=== PATIENT | female | born 1995 | race Two or more races ===

== ENCOUNTER 2022-10-07 13:51 | Emergency (ER) | payer OTHER, SELFPAY ==
--- NOTE | ~2022-10-07 | XR_ITS ---
EXAMINATION: XR CHEST CLINICAL INFORMATION: Chest pain for 7 months, worsening in the last 2 days. COMPARISON: None TECHNIQUE: 2 views of the chest were obtained. FINDINGS: No significant abnormality is noted involving the heart, lungs, mediastinum, bony thorax or soft tissues. XR/XR chest 2V IMPRESSION: Unremarkable examination.
--- NOTE | ~2022-10-07 | CT_ITS ---
EXAMINATION: CT ANGIOGRAM OF THE CHEST WITH AND WITHOUT CONTRAST (CT PULMONARY ANGIOGRAM FOR PE) CLINICAL INFORMATION: Reason for Exam cp COMPARISON: None TECHNIQUE: Prior to contrast administration, noncontrast localization images were obtained. Subsequently, multidetector volumetric imaging was performed from the thoracic inlet to below the diaphragms following the administration of 65 mL Omnipaque 350 intravenous contrast. No contrast reaction reported Sagittal, coronal, and MIP oblique sagittal reformatted images were obtained on the CT workstation, uploaded to PACS, and reviewed. This CT examination was performed using dose optimization techniques as appropriate, variously including the following: *Automated exposure control *Adjustment of mA and/or kV according to patient size (this includes techniques or standardized protocols for targeted exams where dose is matched to indication/reason for exam; i.e. extremities or head) *Use of iterative reconstruction technique Total exam dose-length product 452 mGy-cm FINDINGS: QUALITY OF STUDY/CONTRAST BOLUS: Suboptimal. In addition, there is marked motion artifact along with artifact and neuritis caused by the patient's large size. PULMONARY ARTERIES: No emboli are seen in the main pulmonary artery or the left and right main pulmonary arteries. More distal assessment is not possible. THORACIC AORTA: No aneurysm or dissection. LUNG: No focal consolidation, nodules or masses. PLEURA: No pleural effusion or pneumothorax. MEDIASTINUM: Normal heart size. No pericardial effusion. No hilar or mediastinal lymphadenopathy. No evidence of septal bowing or right heart strain. CORONARY ARTERY CALCIFICATION: None visualized on this study. CHEST WALL/AXILLA: No axillary or internal mammary lymphadenopathy. OSSEOUS STRUCTURES: No acute or suspicious osseous abnormality. UPPER ABDOMEN: A small hiatal hernia is present. No reflux of contrast into the hepatic veins to suggest elevated right heart pressures. CT/CT angio chest PE protocol IMPRESSION: 1. Limited study but no large central pulmonary emboli are seen. 2. VTE: Negative, but limited. This critical result was discussed with Dr. Menchaca immediately after the exam and it was ascertained that the content and urgency of the report was understood at the time of direct communication.
[2022-10-07 14:01] VITALS: BP 146/86; PULSE 99; RESP 18; TEMP 35.7; O2SAT 93; BMI 38.7
--- NOTE | 2022-10-07 14:16 | ED.CHESTPAIN ---
HPI - Chest Pain General Chief Complaint: Chest Pain Stated Complaint: chest pain, sob Time Seen by Provider: 10/07/22 16:13 Related Data Allergies Allergy/AdvReac Type Severity Reaction Status Date / Time No Known Allergies Allergy Verified 10/07/22 14:09 [facility] Social History Social History Advance Directives: No Advance Directives Information Provided: Yes Physical Exam Vital Signs: Vital Signs: Last Vital Signs Temp 97.8 F 10/07/22 20:24 Pulse 75 10/07/22 20:24 Resp 18 10/07/22 20:24 BP 134/84 10/07/22 20:24 Pulse Ox 100 10/07/22 20:24 O2 Del Method Room Air 10/07/22 20:24 BMI result Body Mass Index 38.7 Course Course Course Narrative: RME-14:20pm - 27yoF who speaks Creole Iraqi use interpreter deaf with a PMHx of HTN not on medications x months recently moved from [place] who is presenting to the ED with her son who is 7 months at bedside with c/o of Chest pain with associated SOB has been intermittent since she was . Reports she has not been on her hypertensive medication for months. The chest pain has been worse over the past 2-3 days. Denies being on any control, cough, sputum production, leg swelling, abdominal pain, urinary symptoms or any other symptoms complaints or concerns at this time. Plan: Labs, EKG, CXR. Pt sent to to be seen in the ED. Medications Administered Discontinued Medications Generic Name Dose Route Start Last Admin Trade Name Freq PRN Reason Stop Dose Admin Iohexol 100 ml 10/07/22 18:35 10/07/22 18:35 Iohexol 350 Mg/Ml 100 Ml Infus..Btl IV 10/07/22 18:36 65 ml ONCE ONE Administration Medical Decision Making Lab Data 10/07/22 14:31 10/07/22 14:31 Labs: Lab Results 10/07/22 10/07/22 10/07/22 Range/Units 14:31 14:31 14:31 WBC 10.6 (4.8-10.8) X10*3/uL RBC 4.49 (4.20-5.50) X10*6/uL Hgb 11.3 L (12.0-16.0) g/dl Hct 36.1 L (37.0-47.0) % MCV 80.4 (80.0-98.0) fL MCH 25.2 L (27.0-33.0) pg MCHC 31.3 (31.0-35.0) g/dl RDW 16.4 H (11.0-16.0) % Plt Count 372 (160-400) X10*3/uL MPV 10.4 (9.4-12.3) fL Immature Gran % (Auto) 0.8 H (0.0-0.4) % Neut % (Auto) 65.1 (45-73) % Lymph % (Auto) 27.1 (20-40) % Sumner % (Auto) 5.6 (2-11) % Eos % (Auto) 0.8 (0-4) % Baso % (Auto) 0.6 (0-2) % Lymph # (Auto) 2.9 (1.2-4.9) X10*3/uL Sumner # (Auto) 0.6 (0.1-1.2) X10*3/uL Eos # (Auto) 0.1 (0.0-0.4) X10*3/uL Baso # (Auto) 0.1 (0.0-0.2) X10*3/uL Abs Immat Gran (auto) 0.08 H (0.00-0.03) X10*3/uL Absolute Neuts (auto) 6.9 (2.0-8.3) x10*3/uL Absolute Nucleated RBC 0.000 (0.0-0.012) X10*3/uL Nucleated RBC % (auto) 0.0 (0.0-0.2) /100WBC PT 12.1 (10.0-13.1) SEC INR 1.1 (0.9-1.1) D-Dimer High Sensitivty 314 NG/ML Sodium 143 (135-145) mmol/L Potassium 4.2 (3.3-5.1) mmol/L Chloride 108 (96-108) mmol/L Carbon Dioxide 23 (22-29) mmol/L Anion Gap 16 (12-20) BUN 10 (9-16) mg/dL Creatinine 0.85 (0.5-1.4) mg/dL Estim Creat Clear Calc 140.1 Estimated GFR > 60 Random Glucose 119 H (60-115) mg/dL Calcium 9.2 (8.4-10.2) mg/dL Magnesium 1.9 (1.6-2.6) mg/dL Total Bilirubin 0.5 (0.0-1.0) mg/dL AST 40 H (5-31) U/L ALT 64 H (0-31) U/L Alkaline Phosphatase 111 (39-117) U/L Troponin I High Sens (<3.5-17.0) ng/L B-Natriuretic Peptide (<100) pg/mL Total Protein 7.4 (6.5-8.0) g/dL Albumin 4.0 (3.5-5.0) g/dL Beta HCG, Quant < 2 mIU/mL Influenza Type A (PCR) (Negative) Influenza Type B (PCR) (Negative) RSV RNA Qual (PCR) (Negative) SARS-CoV-2 RNA (RT-PCR) (Negative) 10/07/22 10/07/22 10/07/22 Range/Units 14:31 14:31 14:31 WBC (4.8-10.8) X10*3/uL RBC (4.20-5.50) X10*6/uL Hgb (12.0-16.0) g/dl Hct (37.0-47.0) % MCV (80.0-98.0) fL MCH (27.0-33.0) pg MCHC (31.0-35.0) g/dl RDW (11.0-16.0) % Plt Count (160-400) X10*3/uL MPV (9.4-12.3) fL Immature Gran % (Auto) (0.0-0.4) % Neut % (Auto) (45-73) % Lymph % (Auto) (20-40) % Sumner % (Auto) (2-11) % Eos % (Auto) (0-4) % Baso % (Auto) (0-2) % Lymph # (Auto) (1.2-4.9) X10*3/uL Sumner # (Auto) (0.1-1.2) X10*3/uL Eos # (Auto) (0.0-0.4) X10*3/uL Baso # (Auto) (0.0-0.2) X10*3/uL Abs Immat Gran (auto) (0.00-0.03) X10*3/uL Absolute Neuts (auto) (2.0-8.3) x10*3/uL Absolute Nucleated RBC (0.0-0.012) X10*3/uL Nucleated RBC % (auto) (0.0-0.2) /100WBC PT (10.0-13.1) SEC INR (0.9-1.1) D-Dimer High Sensitivty NG/ML Sodium (135-145) mmol/L Potassium (3.3-5.1) mmol/L Chloride (96-108) mmol/L Carbon Dioxide (22-29) mmol/L Anion Gap (12-20) BUN (9-16) mg/dL Creatinine (0.5-1.4) mg/dL Estim Creat Clear Calc Estimated GFR Random Glucose (60-115) mg/dL Calcium (8.4-10.2) mg/dL Magnesium (1.6-2.6) mg/dL Total Bilirubin (0.0-1.0) mg/dL AST (5-31) U/L ALT (0-31) U/L Alkaline Phosphatase (39-117) U/L Troponin I High Sens < 3.5 (<3.5-17.0) ng/L B-Natriuretic Peptide < 10 (<100) pg/mL Total Protein (6.5-8.0) g/dL Albumin (3.5-5.0) g/dL Beta HCG, Quant mIU/mL Influenza Type A (PCR) NEGATIVE (Negative) Influenza Type B (PCR) NEGATIVE (Negative) RSV RNA Qual (PCR) NEGATIVE (Negative) SARS-CoV-2 RNA (RT-PCR) NEGATIVE (Negative) Discharge Plan Discharge Clinical Impression: Chest pain Patient Disposition: Home, Self-Care Instructions: Chest Pain (DC) Referrals: [facility] [Provider Group] Interventions: ED Discharge Assessment Last Done: 10/07/22 22:30 Discharge Date/Time: 10/07/22 22:31 Print Language: North Korean
--- NOTE | 2022-10-07 14:17 | ECG_ITS ---
Test Reason : cp Blood Pressure : / mmHG Vent. Rate : 088 BPM Atrial Rate : 088 BPM P-R Int : 144 ms QRS Dur : 080 ms QT Int : 364 ms P-R-T Axes : 037 007 006 degrees QTc Int : 440 ms Normal sinus rhythm Normal ECG No previous ECGs available Referred By: Brit Gao Electronically Signed By:uJan Alcala
[2022-10-07 14:36] LABS: MANUAL DIFF FLAG NO
[2022-10-07 14:40] LABS: Basophils Absolute Auto 0.1 X10*3/uL (0.0-0.2); Basophils Percent Auto 0.6 % (0-2); Eosinophils Absolute Auto 0.1 X10*3/uL (0.0-0.4); Eosinophils Percent Auto 0.8 % (0-4); Hematocrit 36.1 % (37.0-47.0); Hemoglobin 11.3 g/dl (12.0-16.0); Imm Gran Abs Auto 0.08 X10*3/uL (0.00-0.03); Imm Gran Pct Auto 0.8 % (0.0-0.4); Lymphocytes Absolute Auto 2.9 X10*3/uL (1.2-4.9); Lymphocytes Percent Auto 27.1 % (20-40); Mean Corpuscular HGB Conc 31.3 g/dl (31.0-35.0); Mean Corpuscular Hemoglobin 25.2 pg (27.0-33.0); Mean Corpuscular Volume 80.4 fL (80.0-98.0); Mean Platelet Volume 10.4 fL (9.4-12.3); Monocytes Absolute Auto 0.6 X10*3/uL (0.1-1.2); Monocytes Percent Auto 5.6 % (2-11); Neutrophils Absolute Auto 6.9 x10*3/uL (2.0-8.3); Neutrophils Percent Auto 65.1 % (45-73); Platelet Count 372 X10*3/uL (160-400); Red Blood Count 4.49 X10*6/uL (4.20-5.50); Red Cell Distribution Width 16.4 % (11.0-16.0); White Blood Count 10.6 X10*3/uL (4.8-10.8)
[2022-10-07 14:49] LABS: INTERNATIONAL NORM RATIO 1.1 (0.9-1.1); Prothrombin Time 12.1 SEC (10.0-13.1)
[2022-10-07 15:05] LABS: Alanine Aminotransferase 64 U/L (0-31); Alkaline Phosphatase 111 U/L (39-117); Anion Gap 16 (12-20); Aspartate Amino Transferase 40 U/L (5-31); B Type Natriuretic Peptide < 10 pg/mL (<100); Bilirubin Total 0.5 mg/dL (0.0-1.0); Blood Urea Nitrogen 10 mg/dL (9-16); Calcium 9.2 mg/dL (8.4-10.2); Carbon Dioxide 23 mmol/L (22-29); Chloride 108 mmol/L (96-108); Creatinine Clr Calc Pharmacy 140.1; Estimated Glomerular Filt Rate > 60; Glucose Random 119 mg/dL (60-115); Magnesium 1.9 mg/dL (1.6-2.6); Potassium 4.2 mmol/L (3.3-5.1); Sodium 143 mmol/L (135-145); Total Protein 7.4 g/dL (6.5-8.0)
[2022-10-07 15:07] LABS: HCG Quantitative < 2 mIU/mL; Troponin-I High Sensitivity < 3.5 ng/L (<3.5-17.0)
[2022-10-07 15:17] LABS: Influenza A PCR NEGATIVE (Negative); Influenza B PCR NEGATIVE (Negative); Resp Syncy Virus RNA Qual PCR NEGATIVE (Negative); SARS COV2 PCR INHOUSE NEGATIVE (Negative)
[2022-10-07 16:43] VITALS: BP 143/83; PULSE 91; RESP 18; TEMP 36.8; O2SAT 97
--- NOTE | 2022-10-07 17:24 | ED.CHESTPAIN ---
HPI - Chest Pain General Chief Complaint: Chest Pain Stated Complaint: chest pain, sob Time Seen by Provider: 10/07/22 16:13 History of Present Illness HPI narrative: Patient is a 27-year-old female presents today with having chest pain. Patient claims her chest pain was diagnosed when she was . She is unsure where she gives . It is [place] the [place] patient complaining of chest pain that is mid chest. It is sharp. Question shortness of breath. Pain is been ongoing. There is no leg swelling. There is no history of being on control pills. Patient has no history of blood clots. No history of diabetes, hypertension, high cholesterol, smoking, mi. no history of sudden in the family. Denies any recent travel. No history of pneumothorax in the past no history of coughing congestion upper respiratory symptoms. The patient does not have the bottle use of a medication she was put on. Claims she got the pill from the hospital but she cannot recall the name of the hospital or the states she was in. Related Data Allergies Allergy/AdvReac Type Severity Reaction Status Date / Time No Known Allergies Allergy Verified 10/07/22 14:09 Review of Systems Review of Systems: No fever no chills no cough no congestion positive chest pain mid chest Yes all other systems are reviewed and are negative PMFSH Social History Social History Advance Directives: No Advance Directives Information Provided: Yes Physical Exam Vital Signs: Vital Signs: Last Vital Signs Temp 97.8 F 10/07/22 20:24 Pulse 75 10/07/22 20:24 Resp 18 10/07/22 20:24 BP 134/84 10/07/22 20:24 Pulse Ox 100 10/07/22 20:24 O2 Del Method 10/07/22 20:24 BMI result Body Mass Index 38.7 Appearance: Alert. Oriented X3. No acute distress. Eyes: Pupils equal, round and reactive to light. ENT: Pharynx normal. Neck: Normal inspection. Neck supple. No lymph nodes noted. No crepitus CVS: Normal heart rate and rhythm. Pulses normal. Normal S1 and S2 Respiratory: No respiratory distress. Breath sounds normal. No Wheezing. No rales Abdomen: Soft and nontender. No rigidity. No distention. good BS x4 Skin: Skin warm and dry. Normal skin color. Normal skin turgor. Extremities: No lower extremity edema. Neurovascular intact to all extremities. No Lacerations. No Rash Neuro: Oriented X 3. No motor deficit. No sensory deficit. Moving all extermities. No slurred speech Medications Administered Discontinued Medications Generic Name Dose Route Start Last Admin Trade Name Sharon PRN Reason Stop Dose Admin Iohexol 100 ml 10/07/22 18:35 10/07/22 18:35 Iohexol 350 Mg/Ml 100 Ml Infus..Btl IV 10/07/22 18:36 65 ml ONCE ONE Administration Medical Decision Making Medical Decision Making [facility] Narrative: Patient's chest pain atypical. Chest x-ray showed no evidence of pneumonia pneumothorax. Patient's EKG is normal. No evidence for UT. Troponin is negative. She is 27 years old. The history is atypical for ACS. Heart score is less than 3. Patient's has no leg swelling. No recent travel. Not on control. No history of PE/DVT. A D-dimer was ordered if it is negative given patient's low risk unlikely to have a pulmonary emboli. Will discharge patient home close follow-up on an outpatient basis Patient's D-dimer minimally elevated at approximately 300. A CTA of the chest was done. There was no large PE noted. It was somewhat limited because of patient's and unable to cooperate. Will have patient follow-up at [facility]. Patient is well-appearing. Workup was negative otherwise. Differential Diagnosis Differential Diagnoses: The differential diagnosis associated with the presentation includes ACS, pneumonia, pneumothorax, pulmonary emboli Lab Data [facility] Lab Attestation statement: I reviewed the patient's lab results. 10/07/22 14:31 10/07/22 14:31 Labs: Lab Results 10/07/22 10/07/22 10/07/22 Range/Units 14:31 14:31 14:31 WBC 10.6 (4.8-10.8) X10*3/uL RBC 4.49 (4.20-5.50) X10*6/uL Hgb 11.3 L (12.0-16.0) g/dl Hct 36.1 L (37.0-47.0) % MCV 80.4 (80.0-98.0) fL MCH 25.2 L (27.0-33.0) pg MCHC 31.3 (31.0-35.0) g/dl RDW 16.4 H (11.0-16.0) % Plt Count 372 (160-400) X10*3/uL MPV 10.4 (9.4-12.3) fL Immature Gran % (Auto) 0.8 H (0.0-0.4) % Neut % (Auto) 65.1 (45-73) % Lymph % (Auto) 27.1 (20-40) % Pleas[place] % (Auto) 5.6 (2-11) % Eos % (Auto) 0.8 (0-4) % Baso % (Auto) 0.6 (0-2) % Lymph # (Auto) 2.9 (1.2-4.9) X10*3/uL [place] # (Auto) 0.6 (0.1-1.2) X10*3/uL Eos # (Auto) 0.1 (0.0-0.4) X10*3/uL Baso # (Auto) 0.1 (0.0-0.2) X10*3/uL Abs Immat Gran (auto) 0.08 H (0.00-0.03) X10*3/uL Absolute Neuts (auto) 6.9 (2.0-8.3) x10*3/uL Absolute Nucleated RBC 0.000 (0.0-0.012) X10*3/uL Nucleated RBC % (auto) 0.0 (0.0-0.2) /100WBC PT 12.1 (10.0-13.1) SEC INR 1.1 (0.9-1.1) D-Dimer High Sensitivty 314 NG/ML Sodium 143 (135-145) mmol/L Potassium 4.2 (3.3-5.1) mmol/L Chloride 108 (96-108) mmol/L Carbon Dioxide 23 (22-29) mmol/L Anion Gap 16 (12-20) BUN 10 (9-16) mg/dL Creatinine 0.85 (0.5-1.4) mg/dL Estim Creat Clear Calc 140.1 Estimated GFR > 60 Random Glucose 119 H (60-115) mg/dL Calcium 9.2 (8.4-10.2) mg/dL Magnesium 1.9 (1.6-2.6) mg/dL Total Bilirubin 0.5 (0.0-1.0) mg/dL AST 40 H (5-31) U/L ALT 64 H (0-31) U/L Alkaline Phosphatase 111 (39-117) U/L Troponin I High Sens (<3.5-17.0) ng/L B-Natriuretic Peptide (<100) pg/mL Total Protein 7.4 (6.5-8.0) g/dL Albumin 4.0 (3.5-5.0) g/dL Beta HCG, Quant < 2 mIU/mL Influenza Type A (PCR) (Negative) Influenza Type B (PCR) (Negative) RSV RNA Qual (PCR) (Negative) SARS-CoV-2 RNA (RT-PCR) (Negative) 10/07/22 10/07/22 10/07/22 Range/Units 14:31 14:31 14:31 WBC (4.8-10.8) X10*3/uL RBC (4.20-5.50) X10*6/uL Hgb (12.0-16.0) g/dl Hct (37.0-47.0) % MCV (80.0-98.0) fL MCH (27.0-33.0) pg MCHC (31.0-35.0) g/dl RDW (11.0-16.0) % Plt Count (160-400) X10*3/uL MPV (9.4-12.3) fL Immature Gran % (Auto) (0.0-0.4) % Neut % (Auto) (45-73) % Lymph % (Auto) (20-40) % [place]as[place] % (Auto) (2-11) % Eos % (Auto) (0-4) % Baso % (Auto) (0-2) % Lymph # (Auto) (1.2-4.9) X10*3/uL [place] # (Auto) (0.1-1.2) X10*3/uL Eos # (Auto) (0.0-0.4) X10*3/uL Baso # (Auto) (0.0-0.2) X10*3/uL Abs Immat Gran (auto) (0.00-0.03) X10*3/uL Absolute Neuts (auto) (2.0-8.3) x10*3/uL Absolute Nucleated RBC (0.0-0.012) X10*3/uL Nucleated RBC % (auto) (0.0-0.2) /100WBC PT (10.0-13.1) SEC INR (0.9-1.1) D-Dimer High Sensitivty NG/ML Sodium (135-145) mmol/L Potassium (3.3-5.1) mmol/L Chloride (96-108) mmol/L Carbon Dioxide (22-29) mmol/L Anion Gap (12-20) BUN (9-16) mg/dL Creatinine (0.5-1.4) mg/dL Estim Creat Clear Calc Estimated GFR Random Glucose (60-115) mg/dL Calcium (8.4-10.2) mg/dL Magnesium (1.6-2.6) mg/dL Total Bilirubin (0.0-1.0) mg/dL AST (5-31) U/L ALT (0-31) U/L Alkaline Phosphatase (39-117) U/L Troponin I High Sens < 3.5 (<3.5-17.0) ng/L B-Natriuretic Peptide < 10 (<100) pg/mL Total Protein (6.5-8.0) g/dL Albumin (3.5-5.0) g/dL Beta HCG, Quant mIU/mL Influenza Type A (PCR) NEGATIVE (Negative) Influenza Type B (PCR) NEGATIVE (Negative) RSV RNA Qual (PCR) NEGATIVE (Negative) SARS-CoV-2 RNA (RT-PCR) NEGATIVE (Negative) Independent Interpretation I performed an independent interpretation of an: EKG Interpretation: My interpretation patient's EKG showed a sinus rhythm heart rate is 80 HI QRS QT within normal limits there is no acute ST segment elevation noted. Discharge Plan Discharge Clinical Impression: Chest pain Patient Disposition: Home, Self-Care Instructions: Chest Pain (DC) Referrals: [facility] [Provider Group] Print Language: Latvian
--- NOTE | 2022-10-07 17:26 | PC.NURSE ---
long discussion with pt and md at bedside with sludge filtration operator. pt reports having issues with her heart and was seen at a hospital and given medication. pt cannot recall the name of diagnosis, name of med/where it was filled, or where she was seen [facility] or [facility]. pt reports increased cp with inspiration. pt aware of plan of care to check ddimer and if negative she can f/u in clinic. pt denied having any questions.
[2022-10-07 17:36] LABS: D Dimer High Sensitivity 314 NG/ML
[2022-10-07] MEDS: iohexoL 350 MG/ML 100 ML INFUS..BTL IV (18:35)
--- NOTE | 2022-10-07 19:23 | PC.NURSE ---
assumed care of pt aox4 no apparent distress, denies sob, denies any pain at this time, pt rquesting fid and refreshment to follow vs assessed
[2022-10-07 20:24] VITALS: BP 134/84; PULSE 75; RESP 18; TEMP 36.6; O2SAT 100
--- NOTE | 2022-10-07 22:29 | PC.NURSE ---
Discharge instructions given/explained to pt, ambulates safely/ind, no apparent distress, denies any pain , IV cath removed and intact upon removal
== END 2022-10-07 22:31 | disposition home or self-care (01) ==
PROVIDERS: Physician Assistant Medical; Emergency Provider Emergency Medicine Emergency Medical Services
DX: R07.89 Other chest pain (principal); R06.02 Shortness of breath; Z20.822 Contact with and (suspected) exposure to COVID-19; Z20.828 Contact with and (suspected) exposure to other viral communicable diseases; Z79.899 Other long term (current) drug therapy
CPT/HCPCS: 0241U; 71046; 71275; 80053; 83735; 83880; 84484; 84702; 85025; 85379; 85610; 93005; 99284; 99285; Q9967

== ENCOUNTER 2024-10-18 14:40 | Emergency (ER) | payer MEDICAID, SELFPAY ==
--- NOTE | ~2024-10-18 | XR_ITS ---
CLINICAL HISTORY: pain 1 view abdomen Comparison: None Findings: No pneumoperitoneum or pneumatosis. Moderate stool burden. No abnormal calcifications. No acute fractures. IMPRESSION: Normal bowel gas pattern This document has been electronically signed by: Alta Monae MD on 10/18/2024 17:03:17
[2024-10-18 15:03] VITALS: BP 95/60; PULSE 84; RESP 16; TEMP 36.6; O2SAT 99; BMI 55.2
--- NOTE | 2024-10-18 15:10 | ED.GENADULT ---
HPI - General Adult General Chief complaint: Abdominal Pain Stated complaint: 6 mo bleeding and abd pain Related Data Allergies Allergy/AdvReac Type Severity Reaction Status Date / Time No Known Allergies Allergy Verified 10/18/24 15:06 REPLACED BY [facility] Social History Social History Advance Directives: No Advance Directives Information Provided: No Physical Exam ED Vital Signs: BMI result Body Mass Index 55.2 Course Course Course Narrative: This is a rapid medical exam performed by Janette Kirby PA-C. The patient is a 29-year-old female who is morbidly obese who presents with the abdominal pain of unclear duration. To note, when she checked in in the waiting room, a comment was made that she was 6 months with vaginal bleeding, this is not the case she is not . We will obtain screening labs and a KUB. The patient was stable and can return to the waiting room pending her full medical assessment. Medical Decision Making Lab Data 10/18/24 16:28 10/18/24 16:28 Labs: Lab Results 10/18/24 Range/Units 16:28 WBC 10.9 H (4.8-10.8) X10*3/uL RBC 4.43 (4.20-5.50) X10*6/uL Hgb 10.8 L (12.0-16.0) g/dl Hct 35.7 L (37.0-47.0) % MCV 80.6 (80.0-98.0) fL MCH 24.4 L (27.0-33.0) pg MCHC 30.3 L (31.0-35.0) g/dl RDW 18.0 H (11.0-16.0) % Plt Count 360 (160-400) X10*3/uL MPV 11.0 (9.4-12.3) fL Immature Gran % (Auto) 0.6 H (0.0-0.4) % Neut % (Auto) 55.1 (45-73) % Lymph % (Auto) 35.4 (20-40) % Bowman % (Auto) 7.2 (2-11) % Eos % (Auto) 1.1 (0-4) % Baso % (Auto) 0.6 (0-2) % Lymph # (Auto) 3.9 (1.2-4.9) X10*3/uL Bowman # (Auto) 0.8 (0.1-1.2) X10*3/uL Eos # (Auto) 0.1 (0.0-0.4) X10*3/uL Baso # (Auto) 0.1 (0.0-0.2) X10*3/uL Abs Immat Gran (auto) 0.06 H (0.00-0.03) X10*3/uL Absolute Neuts (auto) 6.0 (2.0-8.3) x10*3/uL Absolute Nucleated RBC 0.000 (0.0-0.012) X10*3/uL Nucleated RBC % (auto) 0.0 (0.0-0.2) /100WBC Sodium 140 (135-145) mmol/L Potassium 3.7 (3.3-5.1) mmol/L Chloride 109 H (96-108) mmol/L Carbon Dioxide 25 (22-29) mmol/L Anion Gap 10 L (12-20) BUN 8 L (9-16) mg/dL Creatinine 0.69 (0.5-1.4) mg/dL Estim Creat Clear Calc 171.6 Estimated GFR > 60 Random Glucose 72 (60-115) mg/dL Calcium 8.9 (8.4-10.2) mg/dL Magnesium 1.9 (1.6-2.6) mg/dL Total Bilirubin 0.3 (0.0-1.0) mg/dL AST 27 (5-31) U/L ALT 29 (0-31) U/L Alkaline Phosphatase 89 (39-117) U/L Total Protein 7.6 (6.5-8.0) g/dL Albumin 3.8 (3.5-5.0) g/dL Lipase 13 (8-78) U/L Beta HCG, Quant < 2 mIU/mL Urine Color Yellow Urine Appearance Clear Urine pH 5.5 (5.0-9.0) Ur Specific [place] 1.010 (1.005-1.025) Urine Protein Negative (Neg-Trace) mg/dL Urine Glucose (UA) Negative (Negative) mg/dL Urine Ketones Negative (Negative) mg/dL Urine Blood Trace H (Negative) Urine Nitrite Negative (Negative) Ur Leukocyte Esterase Negative (Negative) Urine RBC 0-2 (0-2) /HPF Urine WBC 0-5 (0-5) /HPF Ur Squamous Epith Cells 3-5 (0-2) /HPF Urine Bacteria 1+ (None Seen) Hyaline Casts 0-2 (0-2) /LPF Discharge Plan Discharge Clinical Impression: Abdominal pain Patient Disposition: Left W/O Completing Treatment Discharge Date/Time: 10/18/24 22:00
[2024-10-18 16:36] LABS: MANUAL DIFF FLAG NO
[2024-10-18 16:40] LABS: Appearance Urine Clear; Color Urine Yellow; Glucose Urine UA Negative (Negative); Leukocyte Esterase Urine Negative (Negative); Nitrite Urine Negative (Negative); PH 5.5 (5.0-9.0); UMIC TRIGGER UACC YES; Urine Blood Trace (Negative); Urine Ketones Negative (Negative); Urine Protein Negative (Neg-Trace)
[2024-10-18 16:42] LABS: Bacteria Urine 1+ (None Seen); Hyaline Casts Urine 0-2 /LPF (0-2); RBC Urine 0-2 /HPF (0-2); WBC Urine 0-5 /HPF (0-5)
[2024-10-18 16:54] LABS: Basophils Absolute Auto 0.1 X10*3/uL (0.0-0.2); Basophils Percent Auto 0.6 % (0-2); Eosinophils Absolute Auto 0.1 X10*3/uL (0.0-0.4); Eosinophils Percent Auto 1.1 % (0-4); Hematocrit 35.7 % (37.0-47.0); Hemoglobin 10.8 g/dl (12.0-16.0); Imm Gran Abs Auto 0.06 X10*3/uL (0.00-0.03); Imm Gran Pct Auto 0.6 % (0.0-0.4); Lymphocytes Absolute Auto 3.9 X10*3/uL (1.2-4.9); Lymphocytes Percent Auto 35.4 % (20-40); Mean Corpuscular HGB Conc 30.3 g/dl (31.0-35.0); Mean Corpuscular Hemoglobin 24.4 pg (27.0-33.0); Mean Corpuscular Volume 80.6 fL (80.0-98.0); Monocytes Absolute Auto 0.8 X10*3/uL (0.1-1.2); Monocytes Percent Auto 7.2 % (2-11); Neutrophils Percent Auto 55.1 % (45-73); Platelet Count 360 X10*3/uL (160-400); Red Blood Count 4.43 X10*6/uL (4.20-5.50); White Blood Count 10.9 X10*3/uL (4.8-10.8)
[2024-10-18 17:02] LABS: Alanine Aminotransferase 29 U/L (0-31); Albumin Level 3.8 g/dL (3.5-5.0); Alkaline Phosphatase 89 U/L (39-117); Anion Gap 10 (12-20); Aspartate Amino Transferase 27 U/L (5-31); Bilirubin Total 0.3 mg/dL (0.0-1.0); Blood Urea Nitrogen 8 mg/dL (9-16); Calcium 8.9 mg/dL (8.4-10.2); Carbon Dioxide 25 mmol/L (22-29); Chloride 109 mmol/L (96-108); Creatinine Clr Calc Pharmacy 171.6; Estimated Glomerular Filt Rate > 60; Glucose Random 72 mg/dL (60-115); HCG Quantitative < 2 mIU/mL; Lipase 13 U/L (8-78); Magnesium 1.9 mg/dL (1.6-2.6); Potassium 3.7 mmol/L (3.3-5.1); Sodium 140 mmol/L (135-145); Total Protein 7.6 g/dL (6.5-8.0)
== END 2024-10-18 22:00 | disposition left against medical advice (07) ==
LOC: HO.ED 21:59
PROVIDERS: Physician Assistant Medical; Emergency Provider Emergency Medicine; PCP Nurse Practitioner Family
DX: O26.93 Pregnancy related conditions, unspecified, third trimester (principal); R10.2 Pelvic and perineal pain
CPT/HCPCS: 36415; 74018; 80053; 81001; 83690; 83735; 84702; 85025; 99282; 99283

== ENCOUNTER → 2024-10-18 15:08 | Outpatient (BNV) | payer MEDICAID, SELFPAY | PROVIDERS: PCP Nurse Practitioner Family; Visit Provider Nuclear Medicine | DX: R10.9 Unspecified abdominal pain (principal) | CPT/HCPCS: 74018 ==

== ENCOUNTER 2024-12-30 10:27 | Outpatient (REF) | payer MEDICAID, SELFPAY ==
[2024-12-30 11:41] LABS: MANUAL DIFF FLAG NO
[2024-12-30 11:50] LABS: Basophils Absolute Auto 0.1 X10*3/uL (0.0-0.2); Basophils Percent Auto 0.7 % (0-2); Eosinophils Absolute Auto 0.2 X10*3/uL (0.0-0.4); Eosinophils Percent Auto 1.9 % (0-4); Hematocrit 34.5 % (37.0-47.0); Hemoglobin 10.5 g/dl (12.0-16.0); Imm Gran Abs Auto 0.03 X10*3/uL (0.00-0.03); Imm Gran Pct Auto 0.4 % (0.0-0.4); Lymphocytes Absolute Auto 2.6 X10*3/uL (1.2-4.9); Lymphocytes Percent Auto 30.4 % (20-40); Mean Corpuscular HGB Conc 30.4 g/dl (31.0-35.0); Mean Corpuscular Hemoglobin 24.8 pg (27.0-33.0); Mean Corpuscular Volume 81.6 fL (80.0-98.0); Monocytes Absolute Auto 0.6 X10*3/uL (0.1-1.2); Monocytes Percent Auto 7.2 % (2-11); Neutrophils Absolute Auto 5.1 x10*3/uL (2.0-8.3); Neutrophils Percent Auto 59.4 % (45-73); Platelet Count 367 X10*3/uL (160-400); Red Blood Count 4.23 X10*6/uL (4.20-5.50); Red Cell Distribution Width 16.6 % (11.0-16.0); White Blood Count 8.5 X10*3/uL (4.8-10.8)
[2024-12-30 11:56] LABS: INTERNATIONAL NORM RATIO 1.1 (0.9-1.1); Prothrombin Time 12.1 SEC (10.9-12.4)
[2024-12-30 11:59] LABS: Partial Thromboplastin Time 33.1 SEC (26.0-36.8)
[2024-12-30 12:05] LABS: Estimated Average Glucose 128 mg/dL; Hemoglobin A1c % 6.1 % (<6.0)
--- OUTSIDE RECORDS SUMMARY | 2024-12-30 12:19 | XMS_ITS | Encounter Summary ---
Author Organization [employer] Address [address] [place] [address] Care Team Providers Care Equal Employment Opportunity Officer Name Role Phone Letty Valdivia MD Primary Care Provider + Reason for Visit * Reason Comments Med Refill Encounter Details Date Type Department Care Team (Late Contact Info) Description 02/15/2024 Refill [facility] [address] [place] [address] Evangelina Park FNP [address] [place] [address] Social History Tobacco Use Types Packs/Day Years Used Date Smoking Tobacco: Never Smokeless Tobacco: Never Alcohol Use Standard Drinks/Week Comments Not Currently 0 (1 standard drink = 0.6 oz pur e alcohol) occasionally Comments Unknown Sex and Gender Information Value Date Recorded Sex Assigned at Female 01/14/2023 4:32 PM EDT Legal Sex Female 10:37 AM EDT Gender Identity Female 01/14/2023 4:32 PM EDT Sexual Orientation Choose not to disclose 2022 4:32 PM EDT documented as of this encounter Plan of Treatment Upcoming Encounters Date Type Department Care Team (Late Contact Info) Description 02/23/2025 9:00 AM EDT Office Visit [facility] [address] [place] [address] Letty Valdivia MD [address] [place] [address] documented as of this encounter Visit Diagnoses Not on filedocumented in this encounter Care Teams Equal Employment Opportunity Officer Relationship Specialty Start Date End Date Letty Valdivia MD [address] [place] [phone] PCP - General Internal Medicine 11/17/24 documented as of this encounter
[2024-12-30 12:38] LABS: Alanine Aminotransferase 25 U/L (0-31); Alkaline Phosphatase 88 U/L (39-117); Anion Gap 9 (12-20); Aspartate Amino Transferase 28 U/L (5-31); Bilirubin Total 0.4 mg/dL (0.0-1.0); Blood Urea Nitrogen 8 mg/dL (9-16); Carbon Dioxide 26 mmol/L (22-29); Chloride 111 mmol/L (96-108); Cholesterol 95 mg/dL (<200); Estimated Glomerular Filt Rate > 60; Glucose Random 88 mg/dL (60-115); HDL Cholesterol 43 mg/dL (>40); Iron 39 mcg/dL (30-160); LDL Cholesterol Calculated 36 mg/dL (<100); Percent Iron Saturation 13 % (15-50); Potassium 3.8 mmol/L (3.3-5.1); Sodium 142 mmol/L (135-145); Total Iron Binding Capacity 298 mcg/dL (228-428); Total Protein 7.3 g/dL (6.5-8.0); Triglycerides 80 mg/dL (<150); Unsaturated Iron Binding 259 ug/dL
[2024-12-30 12:39] LABS: Ferritin 31 ng/mL (10-122); TSH reflex Free T4 0.41 uIU/mL (0.32-4.0); Vitamin D 25-OH Total 11.8 ng/mL (>30)
[2024-12-30 12:48] LABS: Folate 6.3 ng/mL (> or = 4.0); Vitamin B12 838 pg/mL (200-900)
[2024-12-31 07:09] LABS: Follicle Stimulating Hormone 9.6 mIU/mL; Lutenizing Hormone 4.4 mIU/mL; Prolactin 5.7 ng/mL
== END 2024-12-30 10:28 | disposition home or self-care (01) ==
LOC: HO.HHCL 10:27
PROVIDERS: Internal Medicine; Visit Provider Internal Medicine
DX: Z01.818 Encounter for other preprocedural examination (principal); N93.8 Other specified abnormal uterine and vaginal bleeding; D64.9 Anemia, unspecified
CPT/HCPCS: 36415; 80053; 80061; 82306; 82607; 82728; 82746; 83001; 83002; 83036; 83540; 84146; 84443; 85025; 85610; 85730

== ENCOUNTER 2025-02-28 08:15 | Outpatient (REF) | payer MEDICAID, OTHER, SELFPAY ==
--- NOTE | ~2025-02-28 | XR_ITS ---
EXAMINATION: XR LUMBAR SPINE 4 OR MORE VIEWS HISTORY: LBP COMPARISON: There are no prior studies for comparison. FINDINGS: AP, lateral, bilateral oblique, and coned down views of the lumbar spine are submitted. Osseous mineralization is normal. Five nonrib-bearing lumbar vertebral bodies are identified, maintaining normal height and alignment without evidence of fracture or spondylolisthesis. The intervertebral disc spaces are preserved. The posterior elements are intact. There is no spondylolysis. The visualized paraspinal soft tissues are unremarkable. XR/XR lumbar spine 4V min IMPRESSION: Unremarkable examination of the lumbar spine. Electronically signed by: Micha Dillon MD 02/28/2025 09:04 AM EDT
--- OUTSIDE RECORDS SUMMARY | 2025-02-28 08:28 | XMS_ITS | Encounter Summary ---
Author Organization [facility] Address [address] [place] [address] Care Team Providers Care Stock Cutter Name Role Phone Letty Valdivia MD Primary Care Provider + Encounter Details Date Type Department Care Team (Latest Contact Info) Description 02/23/2025 Travel Social History Tobacco Use Types Packs/Day Years Used Date Smoking Tobacco: Never Passive Smoke Exposure: Never Smokeless Tobacco: Never Alcohol Use Standard Drinks/Week Comments Not Currently 0 (1 standard drink = 0.6 oz pur e alcohol) occasionally Depression Answer Date Recorded Patient Health Questionnaire-9 Score 0 12/30/2024 Patient Health Questionnaire-9 Score 0 12/30/2024 Last PHQ-9: Questionnaire Data Not on file 0 12/30/2024 Housing Stability Answer Date Recorded What is your housing situation today? I have guicho may 12/30/[address] you li ve. Do you have problems with any of the following? None of the above 12/30/2024 Food Insecurity Answer Date Recorded Within the past 12 months, y ou worried that your food would run out before you got money to buy more: Never True 12/30/2024 Within the past 12 months,th e food you bought just didn't last and you didn't have enough money to get more: Never True 11/2024 Transportation Answer Date Recorded In the past 12 months, has l ack of transportation kept you from medical appts, meetings, work or from getting things needed for daily living? No 12/30/2024 Utilities Answer Date Recorded In the past 12 months, has t he electric, gas, oil or water company threatened to shut off services in your home? No 12/30/2024 Depression Answer Date Recorded Patient Health Questionnaire-2 Score 0 12/30/2024 Internet Access Answer Date Recorded Internet Access Q1 Yes 12/30/2024 Internet Access Q2 Not on file 12/30/2024 Comments Unknown Sex and Gender Information Value Date Recorded Sex Assigned at Female 01/14/2023 4:32 PM EDT Legal Sex Female 10:37 AM EDT Gender Identity Female 01/14/2023 4:32 PM EDT Sexual Orientation Choose not to disclose 2022 4:32 PM EDT documented as of this encounter Plan of Treatment Not on file documented as of this encounter Visit Diagnoses Not on filedocumented in this encounter Additional Health Concerns Assessment Noted Time PHQ-9 Depression Total Score: 0 12/31/19 9:56 AM EDT documented as of this encounter Care Teams Stock Cutter Relationship Specialty Start Date End Date Letty Valdivia MD [address] [place] [phone] PCP - General Internal Medicine 11/17/24 documented as of this encounter
[2025-02-28 11:28] LABS: MANUAL DIFF FLAG NO
[2025-02-28 11:44] LABS: Hematocrit 35.6 % (37.0-47.0); Hemoglobin 10.7 g/dl (12.0-16.0); Imm Gran Abs Auto 0.06 X10*3/uL (0.00-0.03); Imm Gran Pct Auto 0.7 % (0.0-0.4); Lymphocytes Absolute Auto 3.0 X10*3/uL (1.2-4.9); Mean Corpuscular HGB Conc 30.1 g/dl (31.0-35.0); Mean Corpuscular Hemoglobin 24.8 pg (27.0-33.0); Mean Corpuscular Volume 82.6 fL (80.0-98.0); NRBC Abs Auto 0.000 X10*3/uL (0.0-0.012); NRBC Pct Auto 0.0 /100WBC (0.0-0.2); Platelet Count 346 X10*3/uL (160-400); Red Blood Count 4.31 X10*6/uL (4.20-5.50); White Blood Count 8.3 X10*3/uL (4.8-10.8)
[2025-02-28 12:18] LABS: Ferritin 19 ng/mL (10-122)
[2025-03-01 13:57] LABS: Hematocrit 35.6 % (35.0-45.0); Hemoglobin 11.0 g/dL (11.7-15.5); MCH 25.2 pg (27.0-33.0); MCV 81.7 fL (80.0-100.0); RBC 4.36 Million/uL (3.80-5.10); RDW 15.7 % (11.0-15.0)
== END 2025-02-28 08:16 | disposition home or self-care (01) ==
LOC: HO.HHCL 08:15
PROVIDERS: PCP Internal Medicine; Visit Provider Internal Medicine
DX: M54.50 Low back pain, unspecified (principal); D64.9 Anemia, unspecified
CPT/HCPCS: 36415; 72110; 82728; 83020; 84443; 85014; 85018; 85025; 85041

== ENCOUNTER → 2025-02-28 08:34 | Outpatient (BNV) | payer SELFPAY | PROVIDERS: PCP Internal Medicine; Visit Provider Radiology Diagnostic Radiology | DX: M54.50 Low back pain, unspecified (principal) | CPT/HCPCS: 72110 ==

== ENCOUNTER 2025-04-29 | Outpatient (REF) | payer OTHER, SELFPAY ==
--- OUTSIDE RECORDS SUMMARY | 2025-05-09 11:14 | XMS_ITS | Encounter Summary ---
Author Organization [employer] Address [address] [facility] [address] [place] [address] Care Team Providers Care Hopper Filler Name Role Phone Letty Valdivia MD Primary Care Provider + Reason for Visit * Reason Comments Med Refill Encounter Details Date Type Department Care Team ([facility] st Contact Info) Description 02/15/2024 Refill [facility] [address] [place], [place] [phone] Evangelina Park FNP [address] [place] [phone] Social History Tobacco Use Types Packs/Day Years [...] on filedocumented in this encounter Care Teams Hopper Filler Relationship Specialty Start Date End Date Letty Valdivia MD [address] [place] [address] PCP - General Internal Medicine 11/17/24 documented as of this encounter
--- OUTSIDE RECORDS SUMMARY | 2025-05-09 11:14 | XMS_ITS | Clinical Summary ---
Author Organization [employer] Address [address] [facility] [address] [place] [address] Care Team Providers Care Mine Environmental Engineer Name Role Phone Letty Valdivia MD Primary Care Provider + Allergies No known active allergies Medications ferrous sulfate (Fe Tabs) 325 (65 Fe) MG EC tablet Take 1 tablet (325 mg) by mouth with breakfast. Do not crush, chew, or split. 90 tablet 03/02/2025 Active ergocalciferol (Vitamin D2) 1.25 MG (74064 UT) capsuleIndicati ons:Vitamin D deficiency TAKE 1 [...] bariatric surgery, I gave her info from [facility] and [facility] [place] reduction [place] for her [...] to weight reduction surgery. Declines referral to salesperson trailers and motor homes, I advised to follow-up with weight reduction program at [facility], she does not need a [...] Endometriosis. Order pelvic ultrasound and refer to SECOND FLOOR OPERATOR Assessment & Plan (11/16/2024 6:00 PM EDT): Advised not to take meds not prescribed for her, bring the name of the miranda espinoza med to her new PCP Order labs Re consult prn if amenorrhea Encounters Date Type Department Care Team Description 03/24/2025 Refill [facility] [address] [place] [phone] Rosa Johnson MD Vitamin D deficiency 03/02/2025 Results Follow-Up [address] [phone] Letty Valdivia MD CBC auto differential, Hemoglobin Electrophoresis, POCT Urine , Ferritin 02/23/2025 9:00 AM EDT Office Visit [address] [phone] Letty Valdivia MD Class 3 severe obesity due to excess calories without serious comorbidity with body mass index (BMI) of 50.0 to 59.9 in adult (Primary Dx); Anemia, unspecified type; IGT (impaired glucose tolerance); Vitamin D deficiency; DUB (dysfunctional uterine bleeding); Acute bilateral low back pain without sciatica 02/23/2025 Travel 02/22/[address] [phone] Letty Valdivia MD Chart Prep from Last [...] Free T4 0.84 0.32 - 4.0 uIU/mL [facility] Blood 02/28/2025 8:25 AM EDT 02/28/2025 11:22 AM EDT us Letty Valdivia MD LAB BLOOD ORDERABLES Fin al Result [facility] [address] [place] [phone] * (ABNORMAL) CBC auto differential (02/28/2025 8:25 AM EDT) White Blood Count 8.3 4.8 - 10.8 X10*3/uL [facility] Red Blood Count 4.31 4.20 - 5.50 X10*6/uL [facility] Hemoglobin 10.7(L) 12.0 - 16.0 g/dl [facility] Hematocrit 35.6(L) 37.0 - 47.0 % [facility] Mean Corpuscular Volume 82.6 80.0 - 98.0 fL [facility] Mean Corpuscular Hemoglobin 24.8(L) 27.0 - 33.0 pg [facility] Mean Corpuscular HGB Conc 30.1(L) 31.0 - 35.0 g/dl [facility] Red Cell Distribution Width 17.2(H) 11.0 - 16.0 % [facility] Platelet Count 346 160 - 400 X10*3/uL [facility] Mean Platelet Volume 12.0 9.4 - 12.3 fL [facility] Neutrophils Percent Auto 53.5 45 - 73 % [facility] Imm Gran Pct Auto 0.7(H) 0.0 - 0.4 % [facility] Lymphocytes Percent Auto 35.9 20 - 40 % [facility] Monocytes Percent Auto 7.5 2 - 11 % [facility] Eosinophils Percent Auto 1.6 0 - 4 % [facility] Basophils Percent Auto 0.8 0 - 2 % [facility] NRBC Pct Auto 0.0 0.0 - 0.2 /100WBC [facility] Neutrophils Absolute Auto 4.5 2.0 - 8.3 x10*3/uL [facility] Imm Gran Abs Auto 0.06(H) 0.00 - 0.03 X10*3/uL [facility] Lymphocytes Absolute Auto 3.0 1.2 - 4.9 X10*3/uL [facility] Monocytes Absolute Auto 0.6 0.1 - 1.2 X10*3/uL [facility] Eosinophils Absolute Auto 0.1 0.0 - 0.4 X10*3/uL [facility] Basophils Absolute Auto 0.1 0.0 - 0.2 X10*3/uL [facility] NRBC Abs Auto 0.000 0.0 - 0.012 X10*3/uL [facility] Blood Venous blood specimen / Unknown 02/28/2025 8:25 AM EDT 02/28/2025 11:22 AM EDT us Letty Valdivia MD LAB BLOOD ORDERABLES Fin al Result [facility] [address] [place], [place] [phone] * (ABNORMAL) Hemoglobin Electrophoresis (02/28/2025 8:25 AM EDT) RBC 4.36 3.80 - 5.10 Million/u L [facility] Hemoglobin 11.0(A) 11.7 - 15.5 g/dL [facility] Hematocrit 35.6 35.0 - 45.0 % [facility] MCV 81.7 80.0 - 100.0 fL [facility] MCH 25.2(A) 27.0 - 33.0 pg [facility] RDW 15.7(A) 11.0 - 15.0 % [facility] Hemoglobin A 97.8 >96.0 % [facility] Hemoglobin A2 2.2 2.0 - 3.2 % [facility] Hemoglobin F <1.0 <2.0 % [facility] Hemoglobin S TNP [facility] Hemoglobin C TNP [facility] Hemoglobin E TNP [facility] Other Hemoglobin TNP [facility] Other Hemoglobin 2 TNP [facility] Hgb Interpretation SEE NOTE [facility] Comment:Normal phenotype.THI S TEST WAS PERFORMED AT:[employer] [place] [phone] FOY MD Blood Venous blood specimen / Unknown 02/28/2025 8:25 AM EDT 02/28/2025 11:22 AM EDT us Letty Valdivia MD LAB BLOOD ORDERABLES Fin al Result [facility] [address] [place] [phone] * Ferritin (02/28/2025 8:25 AM EDT) Ferritin 19 10 - 122 ng/mL [facility] Blood Venous blood specimen / Unknown 02/28/2025 8:25 AM EDT 02/28/2025 11:22 AM EDT us Letty Valdivia MD LAB BLOOD ORDERABLES Fin al Result [facility] [address] [place] [phone] * XR Lumbar Spine Complete 4+ Views (02/28/2025 7:57 AM EDT) Anatomical Region Laterality Modality Spine, L-spine Radiographic Juliana ging 02/28/2025 7:57 AM EDT Narrative 02/28/2025 9:07 AM EDT [address] [address] XRay Report Signed Patient: Viola Rai MR#: [id number] : 1995 Acct:[id number] Age/Sex: 29 / F ADM Date: 02/28/25 Loc: [facility] Attending Dr: Letty Valdivia MD Ordering Physician: Letty Valdivia MD Date of Service: 02/28/25 Procedure(s): XR lumbar spine 4V min Accession Number(s): [id number] cc: Letty Valdivia MD EXAMINATION: XR LUMBAR [...] 02/28/25 0904 DD/ 0757 TD/TT: 02/28/25 0850 Courtroom Clerk: Procedure Note Donotuseinterpreter, Image - 02/28/[address] [address] XRay Report Signed Patient: Gina Rai#: [id number] : 1995Acct:[id number] Age/Sex: 29 / FADM Date: 02/28/25 Loc: [facility] Attending Dr: Letty Valdivia MD Ordering Physician: Letty Valdivia MD Date of Service: 02/28/25 Procedure(s): XR lumbar spine 4V min Accession Number(s): [id number] cc: Letty Valdivia MD EXAMINATION: XR LUMBAR [...] 02/28/25 0904 DD/ 0757 TD/TT: 02/28/25 0850 Courtroom Clerk: Letty Valdivia MD IMG XR PROCEDURES Final Result * POCT Urine (02/23/2025 10:39 AM EDT) Preg Test, Ur Negative Negative, Indeterminate, None Detected, Invalid, Specimen unsatisfactory for evaluation, Weakly Positive, 2+ QC Media Lot # [id number] Lot# Expiration Date [id number] Urine 02/23/2025 10:3 9 AM EDT us Letty Valdivia MD POINT OF CARE TEST ENTER /EDIT ORDERABLES Final Result * (ABNORMAL) Hemoglobin A1c (12/30/2024 10:31 AM EDT) Hemoglobin A1c 6.1(H) <6.0 % [facility] Comment:Hemoglobin A1C Refer ence Range Adults: 4.8 - 6.0 % Non diabetic: < 6.0 % Goal: < 7.0 %Additional Action Suggested: > 8.0 %Note: Hemoglobin A1c results are invalid for patients with abnormal amounts of HbF. Blood transfusions may impact the HbA1c concentration in the patient sample. Estimated Average Glucose 128 mg/dL [facility] Comment:eAG = Estimated ave rage glucose which is %A1C expressed asaverage glucose, using the formula of the G5Y-NbylrzhLfsbzxe Glucose study (ADAG), Diabetes Care, Vol.31,#8,Feb. 2007 Blood Venous blood specimen / Unknown 12/30/2024 10:31 AM EDT 12/30/2024 11:37 AM EDT us Rosa Lan MD LAB BLOOD ORDERABLES Final Result [facility] [address] [place] [phone] * Lipid Panel, Standard (12/30/2024 10:31 AM EDT) Triglycerides 80 <150 mg/dL [facility] Comment:Desirable Triglyceri de: less than 150 mg/dLBorderline High Triglyceride 150-199 mg/dLHigh Triglyceride: 200-499 mg/dLVery High Triglyceride: greater than or equal to 5OO mg/dL Cholesterol 95 <200 mg/dL [facility] Comment:Desirable Cholestero l: less than 200 mg/dLBorderline High Cholesterol: 200-239 mg/dLHigh Cholesterol: greater than 239 mg/dL LDL Cholesterol Calculated 36 <100 mg/dL [facility] Comment:Desirable LDL: less than 100 mg/dLNear Optimal/Above Optimal LDL: 110- 129 mg/dLBorderline High LDL: 130-159 mg/dLHigh LDL: 160-189 mg/dLVery High LDL: greater than or equal to 190 mg/dL HDL Cholesterol 43 >40 mg/dL [facility] Comment:Desirable HDL: great er than 40 mg/dL Note: This HDL assay may give artificially low results in patients with liver disease. Blood Venous blood specimen / Unknown 12/30/2024 10:31 AM EDT 12/30/2024 11:37 AM EDT us Rosa Lan MD LAB BLOOD ORDERABLES Final Result [facility] [address] [place] [phone] [phone] from Last 3 Months or Most Recently Relevant to Health Maintenance Insurance [facility] HSN FULL Care Teams Mine Environmental Engineer Relationship Specialty Start Date End Date Letty Valdivia MD [address] [place] [phone] PCP - General Internal Medicine 11/17/24
== END 2025-04-29 00:01 | disposition home or self-care (01) ==
LOC: CF
PROVIDERS: PCP Family Medicine; Visit Provider Surgery
DX: E66.01 Morbid (severe) obesity due to excess calories (principal); N93.8 Other specified abnormal uterine and vaginal bleeding; Z68.43 Body mass index [BMI] 50.0-59.9, adult
CPT/HCPCS: 99202

== ENCOUNTER 2025-04-29 08:37 | Outpatient (AMB) | payer OTHER, SELFPAY ==
--- NOTE | 2025-04-29 08:56 | MHC.OFFVISWM ---
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 Father No problems noted. Son No problems noted. Social History (Updated 02/04/25 @ 10:19 by Jie Pate CMA) Alcohol intake: never Patient Tobacco Use Status: Never used Tobacco Physical Exam GI Inspection: Yes normal to inspection, Yes incision (well healed) and Yes obesity Palpation (GI): Soft to palpation Extrem Right lower extremity: normal to inspection Left lower extremity: normal to inspection Assessment & Plan Assessment & Plan (1) Morbid obesity: Code(s): E66.01 - Morbid (severe) obesity due to excess calories Category: Medical Plan: 1. As we discussed, based on your present BMI you are approximately 150lbs overweight. In my opinion, for any weight loss strategy to be successful should have a high probability to help you lose at least 120lbs out of 150lbs of the extra weight you carry. We discussed in detail the available therapeutic options: 1) our lifestyle intervention program that has an average weight loss of 10% in 3 months.?Some patients continue it for longer and have lost over 50lbs but this is not common. Our lifestyle program can be provided by me or by using our software samantha, the [employer] samantha. I will provide you with a link to use the samantha if you choose to do so. We use protein shakes and protein bars to replace some of the meals of the day and cover your appetite better. We will decide together the exact combination. 2) Weight loss medications: these can be used in conjunction with our lifestyle program or you may choose to use them without following a lifestyle program from my program but your own. As we discussed, your insurance requires you to use a medication called Phentermine. Only of this medication is not effective or has side effects the injections will be covered.. We also discussed that you can self pay for the first 3 months and the cost is $249 for the first month and $499 for any other month thereafter. These payments go to the drug company directly and not to us. 3) We also discussed about the lap sleeve gastrectomy. In my opinion this is the best option to solve your problem based on your situation and should be used in conjunction with the two previous options. A good strategy to make this decision to proceed with surgery, is to set some goals with the lifestyle intervention and medication options: If you don't lose at least 10lbs the first 6 weeks after starting the program or at least 10% in 3 months. ?I emphasized the importance of close follow-up, adherence to instructions and good communication. The surgery does not replace the need to change your lifestlyle which is the cause of the obesity problem. The surgery provides the motivation to try again to change your lifestyle, it reduces the appetite and make the transition to a better lifestyle easier and doubles the amount of weight you would lose compared to doing the lifestyle change without the surgery. You will need to be on a liquid diet with protein shakes for 2 weeks before surgery to maximize weight loss and boost your nutritional status to recover better from surgery and also for the first two weeks after surgery to let the stomach heal before we introduce other foods. After the first 2 weeks we will introduce protein bars and soft foods like scrambled eggs, cottage cheese and yogurt and after the 6th week will introduce meat, fish and cooked vegetables in small amounts. Over time you should be able to eat everything in small amounts. Side effects like nausea, vomiting, heartburn or abdominal pain are not common in the practice unless you are not following in the practice. This operation requires lifetime commitment to following in our practice and communication with me. You will much less weight and experience side effects if you don?t communicate or not following in the practice. Complications are rare and in our practice is about 1/10 of the national average. 3. The patient chose to proceed with surgery and preop weight loss with the use of Phentermine. The next step is to purchase a body composition scale, blood pressure monitor, a stationary bike, the suggested Premier protein shakes and Fit Crunch protein bars. Once she gets all the above, she will contact me and we will arrange for a new appointment to discuss the plan in more detail.
--- OUTSIDE RECORDS SUMMARY | 2025-04-29 08:57 | XMS_ITS | Clinical Summary ---
Author Organization [employer] Address [address] [facility] 7[address] [place] [address] Care Team Providers Care Lock Operator Name Role Phone Letty Valdivia MD Primary Care Provider + Allergies No known active allergies Medications ferrous sulfate (Fe Tabs) 325 (65 Fe) MG EC tablet Take 1 tablet (325 mg) by mouth with breakfast. Do not crush, chew, or split. 90 tablet 03/02/2025 Active ergocalciferol (Vitamin D2) 1.25 MG (68357 UT) capsuleIndicati ons:Vitamin D deficiency TAKE 1 CAPSULE BY MOUTH ONCE A WEEK 12 capsule 03/29/2025 Active Active Problems Problem Noted Date Diagnosed Date IGT (impaired glucose tolerance) 02/23/2025 Assessment & Plan (02/23/2025 9:25 AM EDT): A1c is 6 I have discussed with patient regarding increasing physicial activity and decrease calorie intake and weight reduction, she'll start weight reduction program/bariatric surgery Check A1c q6-12m FU in 6m Vitamin D deficiency 02/23/2025 Assessment & Plan (02/23/2025 9:57 AM EDT): Complete 6 months of vitamin D supplementation Advised regarding outdoor exercise. Preop examination 12/30/2024 Assessment & Plan (12/30/2024 2:04 PM EDT): RCRI score is 0 which means she has 3.9% risk Surgery should porocele as schedule I advise NPO after midnight before the procedure Class 3 severe obesity due t o excess calories without serious comorbidity with body mass index (BMI) of 50.0 to 59.9 in adult 11/16/2024 Assessment & Plan (02/23/2025 10:40 AM EDT): Discussed re weight reduction options including exercise, life style modifications, diet. Recommended to decrease soda and sugary beverage consumption, increase protein intake with meals (at least 1 portion of protein with each meal) to assist with satiety, increase dietary fiber Recommended at least 150 min/week of moderate intensity exercise. We discussed about options for treatment including dietitian referral, medications, bariatric surgery. At this time she's interested on bariatric surgery, I gave her info from [facility] and [facility] weight reduction programs for her to start going to informative sessions. I will follow-up in 3 to 4 months. Assessment & Plan (11/16/2024 7:11 PM EDT): Discussed re weight reduction options including exercise, life style modifications, diet. Recommended to decrease soda and sugary beverage consumption, increase protein intake with meals (at least 1 portion of protein with each meal) to assist with satiety, increase dietary fiber Recommended at least 150 min/week of moderate intensity exercise. Advised to FU w PCP re medications or referral to weight reduction surgery. Declines referral to patient resource coordinator, I advised to follow-up with weight reduction program at [facility], she does not need a referral to start going to informational meetings. Anemia 11/16/2024 Assessment & Plan (02/23/2025 10:00 AM EDT): Order labs and hemoglobin electrophoresis and follow-up with me in 3 months Assessment & Plan (11/16/2024 5:56 PM EDT): Order labs and fu w PCP DUB (dysfunctional uterine bleeding) 11/16/2024 Assessment & Plan (02/23/2025 9:58 AM EDT): General labs are normal and test today is negative, unclear if she has anovulatory.'s,? Endometriosis. Order pelvic ultrasound and refer to LVN LPN Assessment & Plan (11/16/2024 6:00 PM EDT): Advised not to take meds not prescribed for her, bring the name of the miranda espinoza med to her new PCP Order labs Re consult prn if amenorrhea Encounters Date Type Department Care Team Description 03/24/2025 Refill [facility] [address] [place] [phone] Rosa Johnson MD Vitamin D deficiency 03/02/2025 Results Follow-Up [address] [phone] Letty Valdivia MD CBC auto differential, Hemoglobin Electrophoresis, POCT Urine , Ferritin 02/23/2025 9:00 AM EDT Office Visit [address] [phone] Letty Valdivia MD Class 3 severe obesity due to excess calories without serious comorbidity with body mass index (BMI) of 50.0 to 59.9 in adult (Primary Dx); Anemia, unspecified type; IGT (impaired glucose tolerance); Vitamin D deficiency; DUB (dysfunctional uterine bleeding); Acute bilateral low back pain without sciatica 02/23/2025 Travel 02/22/[address] [phone] Letty Valdivia MD Chart Prep from Last 3 Months Family History Medical History Relation Name Comments Diabetes type II Father Hypertension Mother Relation Name Status Comments Father Mother Social History Tobacco Use Types Packs/Day Years Used Date Smoking Tobacco: Never Passive Smoke Exposure: Never Smokeless Tobacco: Never Tobacco Cessation:Counseling Given: Not Answered Alcohol Use Standard Drinks/Week Comments Not Currently [...] not to disclose 2022 4:32 PM EDT Last Filed Vital Signs Vital Sign Reading Time Taken Comments Blood Pressure 118/88 02/23/2025 9:44 AM EDT Pulse 85 02/23/2025 9:44 AM EDT Temperature 36.2 C (97.1 F) 02/23/2025 9:44 AM EDT Respiratory Rate 20 02/23/2025 9:44 AM EDT Oxygen Saturation 98% 02/23/2025 9:44 AM EDT Inhaled Oxygen Concentration - - Weight 145 kg (319 lb) 02/23/2025 9:44 AM EDT Height 160 cm (5' 3 ) 02/23/2025 9:44 AM EDT Body Mass Index 56.51 02/23/2025 9:44 AM EDT Plan of Treatment Health Maintenance Due Date Last Done Comments HIV Screening 1994 Alcohol/Substance Use Screening 2006 Family Planning (PISQ) 2009 HPV Vaccines (1 - 3-dose series) 2009 Hepatitis C Screening 2012 DTaP/Tdap/Td Vaccines (1 - Tdap) 2013 Hepatitis B Vaccines (1 of 3 - 19+ 3-dose series) 2013 Pap Smear 2015 Cervical Cancer Screening 2024 HPV/Cotest 2024 COVID-19 Vaccine (1 - 2023-2 5 season) 2025 Influenza Vaccine (#1) 2025 Depression Screening 12/30/2025 12/30/2024, 12/30/2024 Diabetes: Hemoglobin A1C 12/30/2025 12/30/2024 Disability Screening 12/30/2025 12/30/2024 SDOH Screening 12/30/2025 12/30/2024 Tobacco Screening 02/23/2026 02/23/2025 Lipid Panel 12/30/2029 12/30/2024 Zoster Vaccines (1 of 2) 2044 RSV Patients and Patients Aged 60 years or older (1 - 1-dose 75+ series) 2069 HIB Vaccines Aged Out No longer eligi ble based on patient's age to complete this topic Hepatitis A Vaccines Aged Out No long er eligible based on patient's age to complete this topic IPV Vaccines Aged Out No longer eligi ble based on patient's age to complete this topic Meningococcal B Vaccine Aged Out No l onger eligible based on patient's age to complete this topic Meningococcal Vaccine Aged Out No moshe shivani eligible based on patient's age to complete this topic Pneumococcal Vaccine: Pediatrics (0 to 5 Years) and At-Risk Patients (6 to 49) Years Aged Out No longer eligible b ased on patient's age to complete this topic RSV under 20 months Aged Out No longe r eligible based on patient's age to complete this topic Rotavirus Vaccines Aged Out No longer eligible based on patient's age to complete this topic Procedures Procedure Name Priority Date/Time Associated Diagnosis Comments FERRITIN Routine 02/28/2025 8:25 AM EDT Anemia, unspecified type HEMOGLOBIN ELECTROPHORESIS Routine 02/28/2025 8:25 AM EDT Anemia, unspecified type CBC WITH AUTO DIFFERENTIAL Routine 02/28/2025 8:25 AM EDT Anemia, unspecified type DUB (dysfunctional uterine bleeding) TSH W/REFLEX TO FT4 Routine 02/28/2025 8 :25 AM EDT Anemia, unspecified type XR LUMBAR SPINE COMPLETE 4+ VIEWS Routine 02/28/2025 7:57 AM EDT Acute bilateral low back pain without sciatica POCT , URINE Routine 02/23/2025 10:39 AM EDT DUB (dysfunctional uterine bleeding) HEMOGLOBIN A1C Routine 12/30/2024 10:31 AM EDT Preop examination LIPID PANEL, STANDARD Routine 12/30/2024 10:31 AM EDT Preop examination from Last 3 Months or Most Recently Relevant to Health Maintenance Results * TSH with Reflex to Free T4 (02/28/2025 8:25 AM EDT) TSH reflex Free T4 0.84 0.32 - 4.0 uIU/mL [facility] Blood 02/28/2025 8:25 AM EDT 02/28/2025 11:22 AM EDT us Letty Valdivia MD LAB BLOOD ORDERABLES Fin al Result [facility] [address] [place] [phone] * (ABNORMAL) CBC auto differential (02/28/2025 8:25 AM EDT) White Blood Count 8.3 4.8 - 10.8 X10*3/uL [facility] Red Blood Count 4.31 4.20 - 5.50 X10*6/uL [facility] Hemoglobin 10.7(L) 12.0 - 16.0 g/dl [facility] Hematocrit 35.6(L) 37.0 - 47.0 % [facility] Mean Corpuscular Volume 82.6 80.0 - 98.0 fL [facility] Mean Corpuscular Hemoglobin 24.8(L) 27.0 - 33.0 pg [facility] Mean Corpuscular HGB Conc 30.1(L) 31.0 - 35.0 g/dl [facility] Red Cell Distribution Width 17.2(H) 11.0 - 16.0 % [facility] Platelet Count 346 160 - 400 X10*3/uL [facility] Mean Platelet Volume 12.0 9.4 - 12.3 fL [facility] Neutrophils Percent Auto 53.5 45 - 73 % [facility] Imm Gran Pct Auto 0.7(H) 0.0 - 0.4 % [facility] Lymphocytes Percent Auto 35.9 20 - 40 % [facility] Monocytes Percent Auto 7.5 2 - 11 % [facility] Eosinophils Percent Auto 1.6 0 - 4 % [facility] Basophils Percent Auto 0.8 0 - 2 % [facility] NRBC Pct Auto 0.0 0.0 - 0.2 /100WBC [facility] Neutrophils Absolute Auto 4.5 2.0 - 8.3 x10*3/uL [facility] Imm Gran Abs Auto 0.06(H) 0.00 - 0.03 X10*3/uL [facility] Lymphocytes Absolute Auto 3.0 1.2 - 4.9 X10*3/uL [facility] Monocytes Absolute Auto 0.6 0.1 - 1.2 X10*3/uL [facility] Eosinophils Absolute Auto 0.1 0.0 - 0.4 X10*3/uL [facility] Basophils Absolute Auto 0.1 0.0 - 0.2 X10*3/uL [facility] NRBC Abs Auto 0.000 0.0 - 0.012 X10*3/uL [facility] Blood Venous blood specimen / Unknown 02/28/2025 8:25 AM EDT 02/28/2025 11:22 AM EDT us Letty Valdivia MD LAB BLOOD ORDERABLES Fin al Result [facility] [address] [place], [place] [phone] * (ABNORMAL) Hemoglobin Electrophoresis (02/28/2025 8:25 AM EDT) RBC 4.36 3.80 - 5.10 Million/u L [facility] Hemoglobin 11.0(A) 11.7 - 15.5 g/dL [facility] Hematocrit 35.6 35.0 - 45.0 % [facility] MCV 81.7 80.0 - 100.0 fL [facility] MCH 25.2(A) 27.0 - 33.0 pg [facility] RDW 15.7(A) 11.0 - 15.0 % [facility] Hemoglobin A 97.8 >96.0 % [facility] Hemoglobin A2 2.2 2.0 - 3.2 % [facility] Hemoglobin F <1.0 <2.0 % [facility] Hemoglobin S TNP [facility] Hemoglobin C TNP [facility] Hemoglobin E TNP [facility] Other Hemoglobin TNP [facility] Other Hemoglobin 2 TNP H [facility] Hgb Interpretation SEE NOTE H [facility] Comment:Normal phenotype.THI S TEST WAS PERFORMED AT:[address] [place] [phone] FOY MD Blood Venous blood specimen / Unknown 02/28/2025 8:25 AM EDT 02/28/2025 11:22 AM EDT us Letty Valdivia MD LAB BLOOD ORDERABLES Fin al Result [facility] [address] [place] [phone] * Ferritin (02/28/2025 8:25 AM EDT) Ferritin 19 10 - 122 ng/mL [facility] Blood Venous blood specimen / Unknown 02/28/2025 8:25 AM EDT 02/28/2025 11:22 AM EDT us Letty Valdivia MD LAB BLOOD ORDERABLES Fin al Result [facility] [address] [place] [phone] * XR Lumbar Spine Complete 4+ Views (02/28/2025 7:57 AM EDT) Anatomical Region Laterality Modality Spine, L-spine Radiographic Juliana ging 02/28/2025 7:57 AM EDT Narrative 02/28/2025 9:07 AM EDT [address] [address] XRay Report Signed Patient: Viola Rai MR#: [id number] : 1995 Acct:[id number] Age/Sex: 29 / F ADM Date: 02/28/25 Loc: [facility] Attending Dr: Letty Valdivia MD Ordering Physician: Letty Valdivia MD Date of Service: 02/28/25 Procedure(s): XR lumbar spine 4V min Accession Number(s): [id number] cc: Letty Valdivia MD EXAMINATION: XR LUMBAR SPINE 4 OR MORE VIEWS HISTORY: LBP COMPARISON: There are no prior studies for comparison. FINDINGS: AP, lateral, bilateral oblique, and coned down views of the lumbar spine are submitted. Osseous mineralization is normal. Five nonrib-bearing lumbar vertebral bodies are identified, maintaining normal height and alignment without evidence of fracture or spondylolisthesis. The intervertebral disc spaces are preserved. The posterior elements are intact. There is no spondylolysis. The visualized paraspinal soft tissues are unremarkable. XR/XR lumbar spine 4V min IMPRESSION: Unremarkable examination of the lumbar spine. Electronically signed by: Micha Dillon MD 02/28/2025 09:04 AM EDT Dictated By: Micha Dillon MD Signed By: <Electronically signed by Micha Dillon MD in OV> 02/28/25 0904 DD/ 0757 TD/TT: 02/28/25 0850 Military Education Coordinator: Procedure Note Donotuseinterpreter, Image - 02/28/[address] [address] XRay Report Signed Patient: Gina Rai#: [id number] : 1995Acct:[id number] Age/Sex: 29 / FADM Date: 02/28/25 Loc: [facility] Attending Dr: Letty Valdivia MD Ordering Physician: Letty Valdivia MD Date of Service: 02/28/25 Procedure(s): XR lumbar spine 4V min Accession Number(s): [id number] cc: Letty Valdivia MD EXAMINATION: XR LUMBAR SPINE 4 OR MORE VIEWS HISTORY: LBP COMPARISON: There are no prior studies for comparison. FINDINGS: AP, lateral, bilateral oblique, and coned down views of the lumbar spine are submitted. Osseous mineralization is normal. Five nonrib-bearing lumbar vertebral bodies are identified, maintaining normal height and alignment without evidence of fracture or spondylolisthesis. The intervertebral disc spaces are preserved. The posterior elements are intact. There is no spondylolysis. The visualized paraspinal soft tissues are unremarkable. XR/XR lumbar spine 4V min IMPRESSION: Unremarkable examination of the lumbar spine. Electronically signed by: Micha Dillon MD 02/28/2025 09:04 AM EDT Dictated By: Micha Dillon MD Signed By: <Electronically signed by Micha Dillon MD in OV> 02/28/25 0904 DD/ 0757 TD/TT: 02/28/25 0850 Military Education Coordinator: Letty Valdivia MD IMG XR PROCEDURES Final Result * POCT Urine (02/23/2025 10:39 AM EDT) Preg Test, Ur Negative Negative, Indeterminate, None Detected, Invalid, Specimen unsatisfactory for evaluation, Weakly Positive, 2+ QC Media Lot # [id number] Lot# Expiration Date [id number] Urine 02/23/2025 10:3 9 AM EDT us Letty Valdivia MD POINT OF CARE TEST ENTER /EDIT ORDERABLES Final Result * (ABNORMAL) Hemoglobin A1c (12/30/2024 10:31 AM EDT) Hemoglobin A1c 6.1(H) <6.0 % [facility] Comment:Hemoglobin A1C Refer ence Range Adults: 4.8 - 6.0 % Non diabetic: < 6.0 % Goal: < 7.0 %Additional Action Suggested: > 8.0 %Note: Hemoglobin A1c results are invalid for patients with abnormal amounts of HbF. Blood transfusions may impact the HbA1c concentration in the patient sample. Estimated Average Glucose 128 mg/dL [facility] Comment:eAG = Estimated ave rage glucose which is %A1C expressed asaverage glucose, using the formula of the K4N-YybbncbZrvqcur Glucose study (ADAG), Diabetes Care, Vol.31,#8,Feb. 2007 Blood Venous blood specimen / Unknown 12/30/2024 10:31 AM EDT 12/30/2024 11:37 AM EDT us Rosa Lan MD LAB BLOOD ORDERABLES Final Result [facility] [address] [place] [phone] * Lipid Panel, Standard (12/30/2024 10:31 AM EDT) Triglycerides 80 <150 mg/dL [facility] Comment:Desirable Triglyceri de: less than 150 mg/dLBorderline High Triglyceride 150-199 mg/dLHigh Triglyceride: 200-499 mg/dLVery High Triglyceride: greater than or equal to 5OO mg/dL Cholesterol 95 <200 mg/dL [facility] Comment:Desirable Cholestero l: less than 200 mg/dLBorderline High Cholesterol: 200-239 mg/dLHigh Cholesterol: greater than 239 mg/dL LDL Cholesterol Calculated 36 <100 mg/dL [facility] Comment:Desirable LDL: less than 100 mg/dLNear Optimal/Above Optimal LDL: 110- 129 mg/dLBorderline High LDL: 130-159 mg/dLHigh LDL: 160-189 mg/dLVery High LDL: greater than or equal to 190 mg/dL HDL Cholesterol 43 >40 mg/dL [facility] Comment:Desirable HDL: great er than 40 mg/dL Note: This HDL assay may give artificially low results in patients with liver disease. Blood Venous blood specimen / Unknown 12/30/2024 10:31 AM EDT 12/30/2024 11:37 AM EDT us Rosa Lan MD LAB BLOOD ORDERABLES Final Result [facility] [address] [place] [phone] from Last 3 Months or Most Recently Relevant to Health Maintenance Insurance [facility] [employer] F[employer] Care Teams Lock Operator Relationship Specialty Start Date End Date Letty Valdivia MD [address] [place] [phone] PCP - General Internal Medicine 11/17/24
--- OUTSIDE RECORDS SUMMARY | 2025-04-29 08:57 | XMS_ITS | Encounter Summary ---
Author Organization [employer] Address [address] [facility] 7t [place] [address] Care Team Providers Care Imaging Account Manager Name Role Phone Letty Valdivia MD Primary Care Provider + Reason for Visit * Reason Comments Med Refill Encounter Details Date Type Department Care Team ([facility] st Contact Info) Description 02/15/2024 Refill [facility] [address] [place], [place] [phone] Evangelina Park FNP [address] [place] [address] Social History Tobacco Use Types Packs/Day Years [...] on filedocumented in this encounter Care Teams Imaging Account Manager Relationship Specialty Start Date End Date Letty Valdivia MD [address] [place] [phone] PCP - General Internal Medicine 11/17/24 documented as of this encounter
[2025-04-29 09:03] VITALS: BP 138/84; PULSE 65; TEMP 36.1; O2SAT 98; BMI 52.1
== END 2025-04-29 09:59 | disposition home or self-care (01) ==
LOC: HO.HBS 08:37
PROVIDERS: PCP Family Medicine; Visit Provider Surgery
DX: E66.01 Morbid (severe) obesity due to excess calories (principal); Z68.43 Body mass index [BMI] 50.0-59.9, adult
CPT/HCPCS: 99204

== ENCOUNTER 2025-05-26 09:05 | Outpatient (REF) | payer OTHER, SELFPAY ==
[2025-05-26 09:34] LABS: MANUAL DIFF FLAG NO
--- NOTE | 2025-05-26 09:38 | ECG_ITS ---
Test Reason : e66.01 Blood Pressure : */* mmHG Vent. Rate : 66 BPM Atrial Rate : 66 BPM P-R Int : 164 ms QRS Dur : 82 ms QT Int : 412 ms P-R-T Axes : 20 10 0 degrees QTcB Int : 431 ms Normal sinus rhythm Normal ECG When compared with ECG of 07-Oct-2022 14:22, No significant change was found Referred By: Doc Brown Electronically Signed By: SREEDHAR ALMAGUER
--- OUTSIDE RECORDS SUMMARY | 2025-05-26 10:16 | XMS_ITS | Clinical Summary ---
Author Organization [employer] Address [address] [facility] 7[address] [place] [address] Care Team Providers Care Results Engineer Name Role Phone Letty Valdivia MD Primary Care Provider + Allergies No known active allergies Medications ferrous sulfate (Fe Tabs) 325 (65 Fe) MG EC tablet Take 1 tablet (325 mg) by mouth with breakfast. Do not crush, chew, or split. 90 tablet 03/02/2025 Active ergocalciferol (Vitamin D2) 1.25 MG (23866 UT) capsuleIndicati ons:Vitamin D deficiency TAKE 1 [...] bariatric surgery, I gave her info from [facility] [place] for her to start [...] to weight reduction surgery. Declines referral to sanding machine tender automatic, I advised to follow-up with weight reduction program at [facility], she does not need a referral to [...] Endometriosis. Order pelvic ultrasound and refer to MILLROOM SUPERVISOR Assessment & Plan (11/16/2024 6:00 PM EDT): Advised not to take meds not prescribed for her, bring the name of the miranda espinoza med to her new PCP Order labs Re consult prn if amenorrhea Encounters Date Type Department Care Team Description 03/24/2025 Refill [facility] [address] [place] [address] Rosa Johnson MD Vitamin D deficiency 03/02/2025 Results Follow-Up [facility] [address] [place], [place] [phone] Letty Valdivia MD CBC auto differential, Hemoglobin Electrophoresis, POCT Urine , Ferritin 02/23/2025 9:00 AM EDT Office Visit [facility] [address] [place], [place] [phone] Letty Valdivia MD Class 3 severe obesity due to excess calories without serious comorbidity with body mass index (BMI) of 50.0 to 59.9 in adult (Primary Dx); Anemia, unspecified type; IGT (impaired glucose tolerance); Vitamin D deficiency; DUB (dysfunctional uterine bleeding); Acute bilateral low back pain without sciatica 02/23/2025 Travel from Last 3 Months Family History Medical [...] Cancer Screening 2024 HPV/Cotest 2024 COVID-19 Vaccine ( - 2024-2 5 season) 2025 Influenza Vaccine (#1) 2025 [...] Free T4 0.84 0.32 - 4.0 uIU/mL [facility] Blood 02/28/2025 8:25 AM EDT 02/28/2025 11:22 AM EDT us Letty Valdivia MD LAB BLOOD ORDERABLES Fin al Result [facility] [address] [place] [phone] * (ABNORMAL) CBC auto differential (02/28/2025 8:25 AM EDT) White Blood Count 8.3 4.8 - 10.8 X10*3/uL [facility] Red Blood Count 4.31 4.20 - 5.50 X10*6/uL [facility] Hemoglobin 10.7(L) 12.0 - 16.0 g/dl [facility] Hematocrit 35.6(L) 37.0 - 47.0 % [facility] Mean Corpuscular Volume 82.6 80.0 - 98.0 fL [facility] Mean Corpuscular Hemoglobin 24.8(L) 27.0 - 33.0 pg [facility] Mean Corpuscular HGB Conc 30.1(L) 31.0 - 35.0 g/dl [facility] Red Cell Distribution Width 17.2(H) 11.0 - 16.0 % [facility] Platelet Count 346 160 - 400 X10*3/uL [facility] Mean Platelet Volume 12.0 9.4 - 12.3 fL [facility] Neutrophils Percent Auto 53.5 45 - 73 % [facility] Imm Gran Pct Auto 0.7(H) 0.0 - 0.4 % [facility] Lymphocytes Percent Auto 35.9 20 - 40 % [facility] Monocytes Percent Auto 7.5 2 - 11 % [facility] Eosinophils Percent Auto 1.6 0 - 4 % [facility] Basophils Percent Auto 0.8 0 - 2 % [facility] NRBC Pct Auto 0.0 0.0 - 0.2 /100WBC [facility] Neutrophils Absolute Auto 4.5 2.0 - 8.3 x10*3/uL [facility] Imm Gran Abs Auto 0.06(H) 0.00 - 0.03 X10*3/uL [facility] Lymphocytes Absolute Auto 3.0 1.2 - 4.9 X10*3/uL [facility] Monocytes Absolute Auto 0.6 0.1 - 1.2 X10*3/uL [facility] Eosinophils Absolute Auto 0.1 0.0 - 0.4 X10*3/uL [facility] Basophils Absolute Auto 0.1 0.0 - 0.2 X10*3/uL [facility] NRBC Abs Auto 0.000 0.0 - 0.012 X10*3/uL [facility] Blood Venous blood specimen / Unknown 02/28/2025 8:25 AM EDT 02/28/2025 11:22 AM EDT us Letty Valdivia MD LAB BLOOD ORDERABLES Fin al Result [facility] [address] [place] [phone] * (ABNORMAL) Hemoglobin Electrophoresis (02/28/2025 8:25 AM EDT) RBC 4.36 3.80 - 5.10 Million/u L [facility] Hemoglobin 11.0(A) 11.7 - 15.5 g/dL [facility] Hematocrit 35.6 35.0 - 45.0 % [facility] MCV 81.7 80.0 - 100.0 fL [facility] MCH 25.2(A) 27.0 - 33.0 pg [facility] RDW 15.7(A) 11.0 - 15.0 % [facility] Hemoglobin A 97.8 >96.0 % [facility] Hemoglobin A2 2.2 2.0 - 3.2 % [facility] Hemoglobin F <1.0 <2.0 % [facility] Hemoglobin S TNP [facility] Hemoglobin C TNP [facility] Hemoglobin E TNP [facility] Other Hemoglobin TNP [facility] Other Hemoglobin 2 TNP [facility] Hgb Interpretation SEE NOTE H [facility] Comment:Normal phenotype.THI S TEST WAS PERFORMED AT:[employer] [place] [phone] FOY MD Blood Venous blood specimen / Unknown 02/28/2025 8:25 AM EDT 02/28/2025 11:22 AM EDT us Letty Valdivia MD LAB BLOOD ORDERABLES Fin al Result Performing Organization Address [facility] Co de Phone Number [facility] [address] [place] [phone] * Ferritin (02/28/2025 8:25 AM EDT) Ferritin 19 10 - 122 ng/mL [facility] Blood Venous blood specimen / Unknown 02/28/2025 8:25 AM EDT 02/28/2025 11:22 AM EDT Letty Valdivia MD LAB BLOOD ORDERABLES Fin al Result Performing Organization Address City/[facility] Co de Phone Number [facility] [address] [place] [phone] * XR Lumbar Spine Complete 4+ Views (02/28/2025 7:57 AM EDT) Anatomical Region Laterality Modality Spine, L-spine Radiographic Juliana ging 02/28/2025 7:57 AM EDT Narrative 02/28/2025 9:07 AM EDT [address] [address] XRay Report Signed Patient: Viola Rai MR#: [id number] : 1995 Acct:[id number] Age/Sex: 29 / F ADM Date: 02/28/25 Loc: HO.[facility] Attending Dr: Letty Valdivia MD Ordering Physician: Letty Valdivia MD Date of Service: 02/28/25 Procedure(s): XR lumbar spine 4V min Accession Number(s): [id number] cc: Letty Valdivia MD EXAMINATION: XR LUMBAR [...] 02/28/25 0904 DD/ 0757 TD/TT: 02/28/25 0850 Blow Machine Tender Starch Spraying: Procedure Note Donotuseinterpreter, Image - 02/28/[address] [address] XRay Report Signed Patient: Viola RaiMR#: [id number] : 1995Acct:[id number] Age/Sex: 29 / FADM Date: 02/28/25 Loc: HO.CL Attending Dr: Letty Valdivia MD Ordering Physician: Letty Valdivia MD Date of Service: 02/28/25 Procedure(s): XR lumbar spine 4V min Accession Number(s): [id number] cc: Letty Valdivia MD EXAMINATION: XR LUMBAR [...] 02/28/25 0904 DD/ 0757 TD/TT: 02/28/25 0850 Blow Machine Tender Starch Spraying: Letty Valdivia MD IMG XR PROCEDURES Final Result * POCT Urine (02/23/2025 10:39 AM EDT) Preg Test, Ur Negative Negative, Indeterminate, None Detected, Invalid, Specimen unsatisfactory for evaluation, Weakly Positive, 2+ QC Media Lot # [id number] Lot# Expiration Date ,026 Urine 02/23/2025 10:3 9 AM EDT Letty Valdivia MD POINT OF CARE TEST ENTER /EDIT ORDERABLES Final Result * (ABNORMAL) Hemoglobin A1c (12/30/2024 10:31 AM EDT) Hemoglobin A1c 6.1(H) <6.0 % [facility] Comment:Hemoglobin A1C Refer ence Range Adults: 4.8 - 6.0 % Non diabetic: < 6.0 % Goal: < 7.0 %Additional Action Suggested: > 8.0 %Note: Hemoglobin A1c results are invalid for patients with abnormal amounts of HbF. Blood transfusions may impact the HbA1c concentration in the patient sample. Estimated Average Glucose 128 mg/dL [facility] Comment:eAG = Estimated ave rage glucose which is %A1C expressed asaverage glucose, using the formula of the O5X-UrjajscMybhoek Glucose study (ADAG), Diabetes Care, Vol.31,#8,Feb. 2007 Blood Venous blood specimen / Unknown 12/30/2024 10:31 AM EDT 12/30/2024 11:37 AM EDT Rosa Lan MD LAB BLOOD ORDERABLES Final Result [facility] [address] [place] [phone] * Lipid Panel, Standard (12/30/2024 10:31 AM EDT) Triglycerides 80 <150 mg/dL [facility] Comment:Desirable Triglyceri de: less than 150 mg/dLBorderline High Triglyceride 150-199 mg/dLHigh Triglyceride: 200-499 mg/dLVery High Triglyceride: greater than or equal to 5OO mg/dL Cholesterol 95 <200 mg/dL [facility] Comment:Desirable Cholestero l: less than 200 mg/dLBorderline High Cholesterol: 200-239 mg/dLHigh Cholesterol: greater than 239 mg/dL LDL Cholesterol Calculated 36 <100 mg/dL [facility] Comment:Desirable LDL: less than 100 mg/dLNear Optimal/Above Optimal LDL: 110- 129 mg/dLBorderline High LDL: 130-159 mg/dLHigh LDL: 160-189 mg/dLVery High LDL: greater than or equal to 190 mg/dL HDL Cholesterol 43 >40 mg/dL [facility] Comment:Desirable HDL: great er than 40 mg/dL Note: This HDL assay may give artificially low results in patients with liver disease. Blood Venous blood specimen / Unknown 12/30/2024 10:31 AM EDT 12/30/2024 11:37 AM EDT Rosa Lan MD LAB BLOOD ORDERABLES Final Result [facility] [address] [place] [phone] from Last 3 Months or Most Recently Relevant to Health Maintenance [facility] Care Teams Results Engineer Relationship Specialty Start Date End Date Letty Valdivia MD [address] [place] [address] PCP - General Internal Medicine 11/17/24
--- OUTSIDE RECORDS SUMMARY | 2025-05-26 10:16 | XMS_ITS | Encounter Summary ---
Author Organization [employer] Address [address] [facility] 7t [place] [address] Care Team Providers Care Product Lister Name Role Phone Letty Valdivia MD Primary Care Provider + Reason for Visit * Reason Comments Med Refill Encounter Details Date Type Department Care Team ([facility] st Contact Info) Description 02/15/2024 Refill [facility] [address] [place], [place] [phone] Evangelina Park FNP [address] [place] [address] Social History Tobacco Use Types Packs/Day Years [...] on filedocumented in this encounter Care Teams Product Lister Relationship Specialty Start Date End Date Letty Valdivia MD [address] [place] [address] PCP - General Internal Medicine 11/17/24 documented as of this encounter
[2025-05-26 10:39] LABS: Hematocrit 37.9 % (37.0-47.0); Hemoglobin 11.4 g/dl (12.0-16.0); Imm Gran Abs Auto 0.02 X10*3/uL (0.00-0.03); Imm Gran Pct Auto 0.3 % (0.0-0.4); Lymphocytes Absolute Auto 2.2 X10*3/uL (1.2-4.9); Mean Corpuscular HGB Conc 30.1 g/dl (31.0-35.0); Mean Corpuscular Hemoglobin 25.7 pg (27.0-33.0); Mean Corpuscular Volume 85.6 fL (80.0-98.0); NRBC Abs Auto 0.000 X10*3/uL (0.0-0.012); NRBC Pct Auto 0.0 /100WBC (0.0-0.2); Platelet Count 307 X10*3/uL (160-400); Red Blood Count 4.43 X10*6/uL (4.20-5.50); White Blood Count 6.4 X10*3/uL (4.8-10.8)
[2025-05-26 11:20] LABS: Alanine Aminotransferase 24 U/L (0-31); Albumin Level 4.1 g/dL (3.5-5.0); Alkaline Phosphatase 77 U/L (39-117); Anion Gap 9 (12-20); Aspartate Amino Transferase 26 U/L (5-31); Blood Urea Nitrogen 9 mg/dL (9-16); Calcium 8.6 mg/dL (8.4-10.2); Carbon Dioxide 26 mmol/L (22-29); Chloride 111 mmol/L (96-108); Cholesterol 100 mg/dL (<200); Estimated Glomerular Filt Rate > 60; HDL Cholesterol 50 mg/dL (>40); Iron 63 mcg/dL (30-160); Percent Iron Saturation 21 % (15-50); Potassium 3.8 mmol/L (3.3-5.1); Sodium 142 mmol/L (135-145); Total Iron Binding Capacity 297 mcg/dL (228-428); Total Protein 7.3 g/dL (6.5-8.0); Triglycerides 49 mg/dL (<150); Unsaturated Iron Binding 234 ug/dL
[2025-05-26 11:43] LABS: Ferritin 25 ng/mL (10-122)
[2025-05-26 11:51] LABS: Folate 5.2 ng/mL (> or = 4.0); Vitamin B12 793 pg/mL (200-900)
== END 2025-05-26 09:06 | disposition home or self-care (01) ==
LOC: HO.LAB 09:05
PROVIDERS: Visit Provider Surgery
DX: E66.01 Morbid (severe) obesity due to excess calories (principal)
CPT/HCPCS: 36415; 80053; 80061; 82306; 82607; 82728; 82746; 83036; 83525; 83540; 84425; 84443; 84590; 84630; 85025; 86140; 93005

== ENCOUNTER → 2025-05-26 09:38 | Outpatient (BNV) | payer OTHER, SELFPAY | PROVIDERS: Visit Provider Internal Medicine | DX: E66.01 Morbid (severe) obesity due to excess calories (principal); Z68.43 Body mass index [BMI] 50.0-59.9, adult | CPT/HCPCS: 93010 ==

== ENCOUNTER 2025-06-17 09:14 | Outpatient (AMB) | payer OTHER, SELFPAY ==
--- NOTE | 2025-06-17 09:15 | MHC.WMTHER ---
Intake Intake Visit Reasons: OV BH Intake Allergies No Known Allergies Allergy (Verified 04/29/25 09:03) PFSH Medical History (Updated 06/06/25 @ 17:13 by Doc Brown MD) Vitamin A deficiency Vitamin D deficiency Morbid obesity Surgical History (Updated 02/04/25 @ 10:18 by Jie Pate CMA) Hx of section Family History (Updated 02/04/25 @ 10:19 by Jie Pate CMA) Mother No problems noted. Father No problems noted. Son No problems noted. Social History (Updated 02/04/25 @ 10:19 by Jie Pate CMA) Alcohol intake: never Patient Tobacco Use Status: Never used Tobacco Behavioral Health Assessment Weight Management Therapy Therapy Notes Details PT is a 29 years old female self referred, who presents for a visit to complete BH assessment as part of surgical weight loss program. Presenting Concerns Referral Source WMP-Provider Reason for referral Completion of behavioral health assessment as part of process for weight-loss surgery. Precipitating Event obesity Living Situation Current Living Situation Rent At risk of losing current housing? No Satisfied with current living situation? Yes Comments PT lives with her partner and 2 kids. Food/Weight/Diet Expectations of change PT started the program at 303Lbs. Reports her recent is 293Lbs. Patient wants to do the weight loss surgery and achieve 160Lbs. PT is implementing the following: Current meal plan: combination of shakes, bars and 1 meal at day. Exercise plan: PT has a stationary bike scale: yes Communication with provider: Mondays. History/Relationship with food Prior to starting the program, the patient reported frequent consumption of soda and regularly eating larger portion sizes. Her meals often included multiple sources of carbohydrates. She identified a pattern of increased eating in response to stress or worry. Additionally, she noted habitual snacking multiple times throughout the day, often without physical hunger cues. History/Relationship with weight The patient reports that significant weight gain began after having children. She does not recall her exact lowest adult weight but estimates it was approximately 160 lbs. Her highest recorded weight was 303 lbs, which was her starting weight at the onset of the current program. History/Relationship with dieting The patient has previously attempted self-directed dieting, including reducing portion sizes in an effort to manage her weight. She is currently prescribed phentermine, which she reports has been effective in helping to curb her appetite and support her weight loss efforts. Social History Family history and relationship PT is in a formal relationship, the have 2 children they are 6 and 3. Parents . She has 2 sisters and 1 brother. They live in [place]. She has some family in [place]. Parental/Familial senior c web developer obligations 2 children. Developmental history and status none reported Social support . Community support Rental assistance Adventist/Spirituality [employer]. Cultural/Ethnic information PT is from [place], [place] the [place]. PT speaks Egyptian creole and some Albanian as she lived in [place] for couple years prior moving to the . Legal Involvement and History Current or historical involvement with the legal system? None Education Highest grade completed 9th grade. Preferred learning style Verbal and Written Currently enrolled in educational program? No Interested in further educational program? 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 No Financial Situation Describe current financial situation Comfortable Financial assistance? Food [place] [employer] Service? No Mental Health and Addiction Treatment Current/Past substance abuse? No Comments Alcohol: none Cigarettes/Tobacco: none Cannabis/Edibles: none Current/Past addictive behavior concerns? No Psychiatric history The patient is not currently engaged in counseling and denies any history of significant emotional difficulties or psychological trauma. She reports no prior mental health crises and has never required inpatient psychiatric care. There is no past or current history of suicidal ideation, suicide attempts, self-harm, or thoughts of harm to others. No current mental health concerns are identified. Medical and Physical Health Summary Additional Medical History not covered in history Period issues. Sexual History concerns None reported. Physical exam in the last year? Yes ([facility]. ) Pain Screening Current pain? No Pain in the last few months? No Medications Is the patient compliant with medications? Yes Does the patient have Wilburn Guardian in place? Not applicable Does the patient use complimentary health approaches? No Trauma/Abuse History History of trauma? No Questionnaires PHQ-9 Over the last 2 weeks, how often have you been bothered by any of the following problems? 1. Little interest or pleasure in doing things: not at all 2. Feeling down, depressed, or hopeless: not at all 3. Trouble falling or staying asleep, or sleeping too much: several days 4. Feeling tired or having little energy: nearly every day 5. Poor appetite or overeating: several days 6. Feeling bad about yourself - or that you are a failure or have let yourself or your family down: not at all 7. Trouble concentrating on things, such as reading the newspaper or watching television: nearly every day 8. Moving or speaking so slowly that other people could have noticed. Or the opposite - being so fidgety or restless that you have been moving around a lot more than usual: not at all 9. Thoughts that you would be better off or of hurting yourself in some way: not at all Total score: 8 Depression Screening Done: Yes 21074 - PHQ-9 Billing: Yes Source: Developed by Drs. Micha Ball, Lisa Boss, Shaheen Verma and colleagues, with an educational shaun from [employer]. Binge Eating Scale Group 1 A. I don't feel self-conscious about my wt. or body size when I'm with others. B. I feel concerned about how I look to others, but it normally does not make me fell disappointed with myself C. I do get self-conscious about my appearance and wt. which makes me feel disappointed in myself. D. I feel very self-conscious about my wt. and frequently I feel intense shame and disgust for myself. I try to avoid social contacts because of my self-consciousness. Response Group 1: C Group 2 A. I don't have any difficulty eating slowly in the proper manner. B. Although I seem to gobble down foods, I don't end up feeling stuffed because of eating to much. C. At times, I tend to eat quickly and then, I feel uncomfortably full afterwards. D. I have the habit of bolting down my food, without really chewing it. When this happens I usually feel uncomfortably stuffed because I've eaten to much. Response Group 2: A Group 3 A. I feel capable to control my eating urges when I want to. B. I feel like I have failed to control my eating more than the average person. C. I feel utterly helpless when it comes to feeling in control of my eating urges. D. Because I feel so helpless about controlling my eating I have become very desperate about trying to get control. Response Group 3: A Group 4 A. I don't have the habit of eating when I'm bored. B. I sometimes eat when I'm bored, but often I'm able to get busy and get my mind off food. C. I have a regular habit of eating when I'm bored, but occasionally, I can use some other activity to get my mind off eating. D. I have a strong habit of eating when I'm bored. Nothing seems to help me breath the habit. Response Group 4: B Group 5 A. I'm usually physically hungry when I eat something. B. Occasionally, I eat something on impulse even though I really am not hungry. C. I have the regular habit of eating foods, that I might not really enjoy, to satisfy a hungry feeling even though physically, I don't need the food. D. Although I'm not physically hungry, I get a hungry feeling in my mouth that only seems to be satisfied when I eat a food, like sandwich, that fills my mouth. Sometimes, when I eat the food to satisfy my mouth hunger, I then spit the food out so I won't gain weight. Response Group 5: D Group 6 A. I don't feel any guilt or self-hate after I overeat. B. After I overeat, occasionally I feel guilt or self-hate. C. Almost all the time I experience strong guilt or self-hate after I overeat. Response Group 6: C Group 7 A. I don't lose total control of my eating when dieting even after periods when I overeat. B. Sometimes when I eat a forbidden food on a diet, I feel like I blew it and eat even more. C. Frequently, I have the habit of saying to myself, I've blown it now, why not go all the way, when I overeat on a diet. When that happens I eat more. D. I have a regular habit of starting a strict diets for myself but I break the diets by going on an eating binge. My life seems to be either a feast or famine. Response Group 7: A Group 8 A. I rarely eat so much food that I feel uncomfortably stuffed afterwards. B. Usually about once a month, I each such a quantity of food, I end up feeling very stuffed. C. I have regular periods during the month when I eat large amounts of food, either at mealtime or at snacks. D. I eat so much food that I regularly feel quite uncomfortable after eating and sometimes a bit nauseous. Response Group 8: A Group 9 A. My level of calorie intake does not go up very high or go down very low on a regular basis. B. Sometimes after I overeat, I will try to reduce my caloric intake to almost nothing to compensate for the excess calories I've eaten. C. I have a regular habit of overeating during the night. It seems that my routine is not to be hungry in the morning but overeat in the evening. D. In my adult years, I have had week-long periods where I practically starve myself. This follows periods when I overeat. It seems I live a life of either feast or famine. Response Group 9: A Group 10 A. I usually am able to stop eating when I want to. I know when enough is enough. B. Every so often, I experience a compulsion to eat which I can't seem to control. C. Frequently, I experience strong urges to eat which I seem unable to control, but at other times I can control my eating urges. D. I feel incapable of controlling urges to eat. I have a fear of not being able to stop eating voluntarily. Response Group 10: A Group 11 A. I don't have any problem stopping eating when I feel full. B. I usually can stop eating when I feel full but occasionally overeat leaving me feeling uncomfortably stuffed. C. I have a problem stopping eating once I start and usually I feel uncomfortably stuffed after I eat a meal. D. Because I have a problem not being able to stop eating when I want, I sometimes have to induce vomiting to relieve my stuffed feeling. Response Group 11: A Group 12 A. I seem to eat just as much when I'm with others, Family social gatherings as when I'm by myself. B. Sometimes, when I'm with other persons, I don't eat as much as I want to eat because I'm self-conscious about my eating. C. Frequently, I eat only a small amount of food when others are present, because I'm very embarrassed about my eating. D. I feel so ashamed about overeating that I pick times to overeat when I know no one will see me. I feel like a closet eater. Response Group 12: A Group 13 A. I eat three meals a day with only an occasional between meal snack. B. I eat 3 meals a day, but I also normally snack between meals. C. When I am snacking heavily, I get in the habit of skipping regular meals. D. There are regular periods when I seem to be continually eating, with no planned meals. Response Group 13: B Group 14 A. I don't think much about trying to control unwanted eating urges. B. At least some of the time, I feel my thoughts are pre-occupied with trying to control my eating urges. C. I feel that frequently I spend much time thinking about how much I ate or about trying not to eat anymore. D. It seems to me that most of my waking hours are pre-occupied by thoughts about eating or not eating. I feel like I'm constantly struggling not to eat. Response Group 14: B Group 15 A. I don't think about food a great deal. B. I have strong craving for food but they last only for brief periods of time. C. I have days when I can't seem to think about anything else but food. D. Most of my days seem to be pre-occupied with thoughts about food. I feel like I live to eat. Response Group 15: B Group 16 A. I usually know whether or not I'm physically hungry. I take the right portion of food to satisfy me. B. Occasionally, I feel uncertain about knowing whether or not I'm physically hungry. A these times it's hard to know how much food I should take to satisfy me. C. Even though I might know how many calories I should eat, I don't have any idea what is a normal amount of food for me. Response Group 16: A Binge Eating Score: 11 Score less than 17 Minimal Risk Score between 18-26 Moderate Risk Score between 27-46 High Risk Assessment & Plan Assessment & Plan (1) Adjustment disorder: Code(s): F43.20 - Adjustment disorder, unspecified Qualifiers: Adjustment disorder type: unspecified type Qualified Code(s): F43.20 - Adjustment disorder, unspecified (2) Pre-bariatric surgery psychological evaluation: Code(s): Z71.89 - Other specified counseling (3) Inappropriate diet or eating habits: Code(s): Z72.4 - Inappropriate diet and eating habits Plan Following a comprehensive behavioral health assessment?including Binge Eating Scale, PHQ-9, mental status evaluation, and patient self-report?there are no behavioral health contraindications to bariatric surgery. The patient demonstrates insight, motivation, and psychological readiness, with no active psychiatric symptoms or maladaptive eating behaviors identified. Cleared to proceed with surgery; documentation can be submitted for insurance approval. Patient will follow up 1?4 weeks postoperatively to monitor adjustment and address any emerging concerns. Additional support will be provided as needed. Next appointment: 1?4 weeks post-op. [place] [address] Psy Diag Eval Patient Type New Diagnoses Adjustment disorder, unspecified type F43.20 Adjustment disorder type: unspecified type Pre-bariatric surgery psychological evaluation Z71.89 Inappropriate diet or eating habits Z72.4 Additional Codes PHQ-9 - 57604 - PHQ-9 Billing: Yes ([id number]) Time Spent (min) 60
--- OUTSIDE RECORDS SUMMARY | 2025-06-17 09:36 | XMS_ITS | Clinical Summary ---
Author Organization [employer] Address [address] [facility] [address] [place] [address] Care Team Providers Care [facility] Psychiatrist Name Role Phone Letty Valdivia MD Primary Care Provider + Allergies No known active allergies Medications ferrous sulfate (Fe Tabs) 325 (65 Fe) MG EC tablet Take 1 tablet (325 mg) by mouth with breakfast. Do not crush, chew, or split. 90 tablet 03/02/2025 Active ergocalciferol (Vitamin D2) 1.25 MG (37577 UT) capsuleIndicati ons:Vitamin D deficiency TAKE 1 [...] bariatric surgery, I gave her info from [facility] and [facility] weight reduction programs for her to start [...] to weight reduction surgery. Declines referral to semiconductor packages sealer, I advised to follow-up with weight reduction program at [facility], she does not need a referral to [...] Endometriosis. Order pelvic ultrasound and refer to HOME DAY CARE PROVIDER Assessment & Plan (11/16/2024 6:00 PM EDT): Advised not to take meds not prescribed for her, bring the name of the miranda espinoza med to her new PCP Order labs Re consult prn if amenorrhea Encounters Date Type Department Care Team Description 03/24/2025 Refill [facility] [address] [place] [address] Rosa Johnson MD Vitamin D deficiency from [...] AM EDT) Hemoglobin A1c 6.1(H) <6.0 % [facility] Comment:Hemoglobin A1C Refer ence Range Adults: 4.8 - 6.0 % Non diabetic: < 6.0 % Goal: < 7.0 %Additional Action Suggested: > 8.0 %Note: Hemoglobin A1c results are invalid for patients with abnormal amounts of HbF. Blood transfusions may impact the HbA1c concentration in the patient sample. Estimated Average Glucose 128 mg/dL [facility] Comment:eAG = Estimated ave rage glucose which is %A1C expressed asaverage glucose, using the formula of the X9C-YjyhmleTmywpdr Glucose study (ADAG), Diabetes Care, Vol.31,#8,Feb. 2007 Blood Venous blood specimen / Unknown 12/30/2024 10:31 AM EDT 12/30/2024 11:37 AM EDT us Rosa Lan MD LAB BLOOD ORDERABLES Final Result [facility] [address] [place] [address] [phone] * Lipid Panel, Standard (12/30/2024 10:31 AM EDT) Triglycerides 80 <150 mg/dL [facility] Comment:Desirable Triglyceri de: less than 150 mg/dLBorderline High Triglyceride 150-199 mg/dLHigh Triglyceride: 200-499 mg/dLVery High Triglyceride: greater than or equal to 5OO mg/dL Cholesterol 95 <200 mg/dL [facility] Comment:Desirable Cholestero l: less than 200 mg/dLBorderline High Cholesterol: 200-239 mg/dLHigh Cholesterol: greater than 239 mg/dL LDL Cholesterol Calculated 36 <100 mg/dL [facility] Comment:Desirable LDL: less than 100 mg/dLNear Optimal/Above Optimal LDL: 110- 129 mg/dLBorderline High LDL: 130-159 mg/dLHigh LDL: 160-189 mg/dLVery High LDL: greater than or equal to 190 mg/dL HDL Cholesterol 43 >40 mg/dL [facility] Comment:Desirable HDL: great er than 40 mg/dL Note: This HDL assay may give artificially low results in patients with liver disease. Blood Venous blood specimen / Unknown 12/30/2024 10:31 AM EDT 12/30/2024 11:37 AM EDT us Rosa Lan MD LAB BLOOD ORDERABLES Final Result Performing Organization Address City/[facility] Co de Phone Number [facility] [address] [place] [address] [phone] from Last 3 Months or Most Recently Relevant to Health Maintenance Insurance [employer] H[employer] FULL Care Teams [facility] Psychiatrist Relationship Specialty Start Date End Date Letty Valdivia MD [address] [place] [phone] PCP - General Internal Medicine 11/17/24
--- OUTSIDE RECORDS SUMMARY | 2025-06-17 09:36 | XMS_ITS | Encounter Summary ---
Author Organization [employer] Address [address] [place] [address] Care Team Providers Care Frankfurter Inspector Name Role Phone Letty Valdivia MD Primary Care Provider + Reason for Visit * Reason Comments Med Refill Encounter Details Date Type Department Care Team ([facility] Contact Info) Description 02/15/[address] [facility] [address] [place] [address] Evangelina Park FNP [address] [place] [address] Social History Tobacco Use Types Packs/Day Years [...] on filedocumented in this encounter Care Teams Frankfurter Inspector Relationship Specialty Start Date End Date Letty Valdivia MD [address] [place] [address] PCP - General Internal Medicine 11/17/24 documented as of this encounter
== END 2025-06-17 10:32 | disposition home or self-care (01) ==
LOC: HO.HBST 09:15
PROVIDERS: Visit Provider Counselor Mental Health
DX: F43.20 Adjustment disorder, unspecified (principal); Z71.89 Other specified counseling; Z72.4 Inappropriate diet and eating habits
CPT/HCPCS: 90791

== ENCOUNTER 2025-07-05 09:03 | Day surgery (SDC) | payer OTHER, SELFPAY ==
--- OUTSIDE RECORDS SUMMARY | 2025-06-16 00:35 | XMS_ITS | Clinical Summary ---
Author Organization [employer] Address [address] [facility] 7[address] [place] [address] Care Team Providers Care Division Roadmaster Name Role Phone Letty Valdivia MD Primary Care Provider + Allergies No known active allergies Medications ferrous sulfate (Fe Tabs) 325 (65 Fe) MG EC tablet Take 1 tablet (325 mg) by mouth with breakfast. Do not crush, chew, or split. 90 tablet 03/02/2025 Active ergocalciferol (Vitamin D2) 1.25 MG (38989 UT) capsuleIndicati ons:Vitamin D deficiency TAKE 1 [...] bariatric surgery, I gave her info from [facility] weight reduction programs for her to start [...] to weight reduction surgery. Declines referral to gear roller, I advised to follow-up with weight reduction program at [facility], she does not need a referral to [...] Endometriosis. Order pelvic ultrasound and refer to CULTURIST Assessment & Plan (11/16/2024 6:00 PM EDT): Advised not to take meds not prescribed for her, bring the name of the miranda espinoza med to her new PCP Order labs Re consult prn if amenorrhea Encounters Date Type Department Care Team Description 03/24/2025 Refill [facility] [address] [place] [address] Rosa Johnson MD Vitamin D deficiency from Last 3 Months Family History Medical [...] 2024 HPV/Cotest 2024 COVID-19 Vaccine (1 - 2024-2 6 season) 2025 Influenza Vaccine (#1) 2025 Depression [...] Procedure Name Priority Date/Time Associated Diagnosis Comments HEMOGLOBIN A1C Routine 12/30/2024 10:31 AM EDT Preop examination LIPID PANEL, STANDARD Routine 12/30/2024 10:31 AM EDT Preop examination from Last 3 Months or Most Recently Relevant to Health Maintenance Results * (ABNORMAL) Hemoglobin A1c (12/30/2024 10:31 AM EDT) Hemoglobin A1c 6.1(H) <6.0 % [facility] Comment:Hemoglobin A1C Refer ence Range Adults: 4.8 - 6.0 % Non diabetic: < 6.0 % Goal: < 7.0 %Additional Action Suggested: > 8.0 %Note: Hemoglobin A1c results are invalid for patients with abnormal amounts of HbF. Blood transfusions may impact the HbA1c concentration in the patient sample. Estimated Average Glucose 128 mg/dL [facility] Comment:eAG = Estimated ave rage glucose which is %A1C expressed asaverage glucose, using the formula of the D1D-FkrmkwsUvqfytn Glucose study (ADAG), Diabetes Care, Vol.31,#8,Feb. 2007 Blood Venous blood specimen / Unknown 12/30/2024 10:31 AM EDT 12/30/2024 11:37 AM EDT us Rosa Lan MD LAB BLOOD ORDERABLES Final Result [facility] [address] [place] [address] [phone] * Lipid Panel, Standard (12/30/2024 10:31 AM EDT) Triglycerides 80 <150 mg/dL [facility] Comment:Desirable Triglyceri de: less than 150 mg/dLBorderline High Triglyceride 150-199 mg/dLHigh Triglyceride: 200-499 mg/dLVery High Triglyceride: greater than or equal to 5OO mg/dL Cholesterol 95 <200 mg/dL [facility] Comment:Desirable Cholestero l: less than 200 mg/dLBorderline High Cholesterol: 200-239 mg/dLHigh Cholesterol: greater than 239 mg/dL LDL Cholesterol Calculated 36 <100 mg/dL [facility] Comment:Desirable LDL: less than 100 mg/dLNear Optimal/Above Optimal LDL: 110- 129 mg/dLBorderline High LDL: 130-159 mg/dLHigh LDL: 160-189 mg/dLVery High LDL: greater than or equal to 190 mg/dL HDL Cholesterol 43 >40 mg/dL [facility] Comment:Desirable HDL: great er than 40 mg/dL Note: This HDL assay may give artificially low results in patients with liver disease. Blood Venous blood specimen / Unknown 12/30/2024 10:31 AM EDT 12/30/2024 11:37 AM EDT us Rosa Lan MD LAB BLOOD ORDERABLES Final Result Performing Organization Address [facility] Co de Phone Number [facility] [address] [place] [address] [phone] from Last 3 Months or Most Recently Relevant to Health Maintenance Insurance [employer] H[employer] FULL Care Teams Division Roadmaster Relationship Specialty Start Date End Date Letty Valdivia MD [address] [place] [phone] PCP - General Internal Medicine 11/17/24
--- OUTSIDE RECORDS SUMMARY | 2025-06-16 00:35 | XMS_ITS | Encounter Summary ---
Author Organization [employer] Address [address] [facility] [address] [place] [address] Care Team Providers Care Accounts Officer Name Role Phone Letty Valdivia MD Primary Care Provider + Reason for Visit * Reason Comments Med Refill Encounter Details Date Type Department Care Team ([facility] st Contact Info) Description 02/15/2024 Refill [facility] [address] [place], [place] [phone] Evangelina Park FNP [address] [place] [address] Social History Tobacco Use Types Packs/Day Years [...] on filedocumented in this encounter Care Teams Accounts Officer Relationship Specialty Start Date End Date Letty Valdivia MD [address] [place] [address] PCP - General Internal Medicine 11/17/24 documented as of this encounter
[2025-07-05 09:37] VITALS: BMI 44.0
[2025-07-05 09:56] LABS: UPreg QC Valid YES
[2025-07-05 10:06] VITALS: BP 141/90; PULSE 77; RESP 16; TEMP 36.4; O2SAT 99
[2025-07-05] MEDS: Lactated Ringers 1,000 ML 100 ML IVCONT (10:10)
--- NOTE | 2025-07-05 10:33 | MHC.SHP ---
Pre-Procedural Eval Section A - 24 Hr Update-Section A only Date of Service: 07/05/25 The patient is an INPATIENT: No The patient has been examined within 24 hours of the surgical procedure. The History & Physical has been completed within 30 days and I have reviewed it.: Yes Section B - Complete if H&P > 30 days Chief Complaint: Morbid (severe) obesity due to excess calories Relevant Family History (Specify if Yes): No Relevant Social History: None Present Medications: None Medical History: No relevant PMH History of Previous Operations: No relevant previous surgery Allergies: Allergies Allergy/AdvReac Type Severity Reaction Status Date / Time No Known Allergies Allergy Verified 04/29/25 09:03 Review of Systems Sugical H&P ROS: Negative: Constitution, Cardiovascular, Respiratory, Neurological, Psychiatric, Hem-Onc, Allergic/Immunologic, Gastrointestinal, Genitourinary, Musculoskeletal, Integumentary, Endocrine and Eyes/Ears/Nose/Throat Exam Surgical H&P Exam: Normal: HEENT, Normal: Heart, Normal: Lungs, Normal: Extremities, Normal: Abdomen, Normal: Skin and Normal: Neurological Plan Diagnosis/Plan: Unchanged (EGD to assess the stomach's anatomy. Risks of bleeding and perforation were discussed with the patient and she is in agreement with the plan.) I have reviewed the history and physical and performed a pertinent physical examination on my patient. No changes have occurred unless specified. Time Spent With Patient Time: Total time managing care of this patient today ____ minutes.
--- NOTE | 2025-07-05 10:37 | HO.ANESPROP2 ---
Documented by User: Kelly Dao NP 07/01/25 09:13 HPI - Anesthesia Eval Consult details Narrative: 30yo F for Upper Endoscopy BMI 55 PMFSH Active Problems Active Problems: All Active Problems Vitamin A deficiency (Acute) Vitamin D deficiency (Acute) Morbid obesity (Acute) Past Medical History Medical History (Updated 06/06/25 @ 17:13 by Doc Brown MD) Vitamin A deficiency Vitamin D deficiency Morbid obesity Family History Family History (Updated 02/04/25 @ 10:19 by Jie Pate CMA) Mother No problems noted. Father No problems noted. Son No problems noted. Surgical History Surgical History (Updated 02/04/25 @ 10:18 by Jie Pate CMA) Hx of section Social History Social History (Updated 02/04/25 @ 10:19 by Jie Pate CMA) Alcohol intake: never Patient Tobacco Use Status: Never used Tobacco Use of substances other than those prescribed or required for medical reasons: No Advance Directives: No Advance Directives Information Provided: Yes Meds Allergies Allergy/AdvReac Type Severity Reaction Status Date / Time No Known Allergies Allergy Verified 04/29/25 09:03 Home Medications ?Medication ?Instructions ?Recorded ?Confirmed ?Last Taken ?Type vitamin d PO 02/21/25 04/29/25 Unknown History Assessment and Plan Assessment Anesthesia Assessment: Chart Reviewed Documented by User: Cary Huertas DO 07/05/25 10:39 HPI - Anesthesia Eval Consult details Narrative: 30yo F for Upper Endoscopy BMI 44 PMFSH Past Medical History Medical History (Updated 06/06/25 @ 17:13 by Doc Brown MD) Vitamin A deficiency Vitamin D deficiency Morbid obesity Family History Family History (Updated 02/04/25 @ 10:19 by Jie Pate CMA) Mother No problems noted. Father No problems noted. Son No problems noted. Family history of problems with anesthesia: No Surgical History Surgical History (Updated 02/04/25 @ 10:18 by Jie Pate CMA) Hx of section History of Problems with Anesthesia: No Social History Social History (Updated 02/04/25 @ 10:19 by Jie Pate CMA) Alcohol intake: never Patient Tobacco Use Status: Never used Tobacco Use of substances other than those prescribed or required for medical reasons: No Advance Directives: No Advance Directives Information Provided: Yes Meds Allergies Allergy/AdvReac Type Severity Reaction Status Date / Time No Known Allergies Allergy Verified 04/29/25 09:03 Home Medications ?Medication ?Instructions ?Recorded ?Confirmed ?Last Taken ?Type vitamin d PO 02/21/25 04/29/25 Unknown History Exam Exam Date and Time: 07/05/25 1038 Height,Weight and Vital Signs: Height 5 ft 8 in Weight 131.2 kg Vital Signs Temperature 97.6 F 07/05/25 10:06 Pulse Rate 77 07/05/25 10:06 Respiratory Rate 16 07/05/25 10:06 Blood Pressure 141/90 H 07/05/25 10:06 Pulse Oximetry 99 07/05/25 10:06 Oxygen Delivery Method Room Air 07/05/25 10:06 Temperature 97.6 F 07/05/25 10:06 Pulse Rate 77 07/05/25 10:06 Respiratory Rate 16 07/05/25 10:06 Blood Pressure 141/90 H 07/05/25 10:06 Pulse Oximetry 99 07/05/25 10:06 Oxygen Delivery Method Room Air 07/05/25 10:06 Airway Mallampati Class: III TM Dist: >3cm Neck ROM: Full Loose/Missing/Broken Teeth: Yes (broken tooth left lower jaw) Heart: S1S2 Lungs: CTAB Assessment and Plan Assessment Anesthesia Assessment: Anesthesia Plan Discussed and Chart Reviewed Final Anesthetic Review Family History of Problems with Anesthesia: No History of Problems with Anesthesia: No NPO: Yes ASA Class: II Final Preanesthetic Review: No Changes in Pt Med Stat, Meds/Allgs Chart Reviewed, Consent Obtained/Reviewed and Anes Risks/Benef Reviewed Patient Risk: Low Procedure Risk: Low Anesthetic Plan Anesthetic Plan: MAC: and Agree w/ Assess. and Plan Disposition: Standard PACU
--- NOTE | 2025-07-05 10:39 | PM.OP ---
Brief Operative Note Date of Service: 07/05/25 Pre-op diagnosis: Morbid obesity Post-op diagnosis: same Procedure: PROCEDURE DATE: 07/05/2025 PREOPERATIVE DIAGNOSIS: Morbid obesity POSTOPERATIVE DIAGNOSIS: ?Same as above. 3cm diaphragmatic hernia PROCEDURE: Kumeyfzz-eexmte-ggotlkeuaava with biopsies Surgeon: Olivier Brown M.D.. Ph.D. Family Life Counselor: None ? Anesthesia: IV sedation Estimated blood loss: ?Minimal FINDINGS AND PROCEDURE: ? OPERATIVE INDICATIONS: ?The patient is a 30 year old female known to me who is interested in bariatric surgery. Based on this information I recommended an upper endoscopy to evaluate the patient's symptoms. Risks and complications of the surgery were discussed with the patient in advance particularly the possibility of perforation or bleeding that may require surgical intervention. The patient understood the risks and was in agreement with the plan. ? PROCEDURE: After informed consent was obtained by the patient, the patient was ?transferred to the Operating Room and was placed in the supine position.? After successful induction of IV sedation, a mouth block was inserted and the patient was placed in the left lateral decubitus position. An upper endoscopy was performed next, the oropharynx and esophagus appeared within the normal limits. There was a 3cm hiatal hernia. The z-line was smooth. Two biopsies were obtained from the distal esophagus 2-3 cm proximal to the GE junction and two additional biopsies from the GE junction. The stomach was entered and it appeared to be of normal size. There was no gastritis. There was no stricture or ulcer. A biopsy was obtained from the gastric fundus and the antrum. No significant bleeding was noted from any of the biopsy sites. Retroflexion of the scope confirmed the presence of a diaphragmatic hernia. The scope was then advanced into the duodenum to the 4th portion, which appeared to be normal as well. At that point the duodenum ?and the stomach were decompressed and the scope was withdrawn from the patient's mouth. The patient extubated and was transferred in stable condition to the Recovery Room for further care. I was present and performed all steps of the procedure. There were no residents to assist with this case. Jose Luis Brown M.D., Ph.D. Surgeon: Doc Brown MD Anesthesia: MAC Was an Family Life Counselor used for this Procedure?: No Estimated blood loss (mL): 0 IV fluids (mL): 400 Urine output (mL): 0 (No Kirby to record output) Pathology: other (1) antrum x1, 2) fundus x1, 3) GE junction x2, 4) distal esophagus x2) Condition: stable Disposition: PACU
[2025-07-05 11:20] VITALS: BP 122/64; PULSE 79; RESP 16; TEMP 36.1; O2SAT 96
[2025-07-05 11:34] VITALS: BP 122/64; PULSE 68; RESP 16; O2SAT 100
[2025-07-05 11:46] VITALS: BP 128/73; PULSE 66; RESP 16; TEMP 36.3; O2SAT 100
== END 2025-07-05 12:18 | disposition home or self-care (01) ==
PROVIDERS: Nurse Practitioner; Visit Provider Surgery
PROC: 0DJ08ZZ Inspection of Upper Intestinal Tract, Via Natural or Artificial Opening Endoscopic (ICD-10-PCS; CPT 43235; principal; 2025-07-05 10:30)
DX: E66.01 Morbid (severe) obesity due to excess calories (principal); Z68.43 Body mass index [BMI] 50.0-59.9, adult; K29.50 Unspecified chronic gastritis without bleeding; B96.81 Helicobacter pylori [H. pylori] as the cause of diseases classified elsewhere; K44.9 Diaphragmatic hernia without obstruction or gangrene; Z79.899 Other long term (current) drug therapy
CPT/HCPCS: 43239; 81025; 88305; 88313; 88342; J2704

== ENCOUNTER → 2025-07-05 09:03 | Outpatient (BNV) | payer OTHER, SELFPAY | PROVIDERS: Visit Provider Surgery | DX: E66.01 Morbid (severe) obesity due to excess calories (principal); Z68.43 Body mass index [BMI] 50.0-59.9, adult; K44.9 Diaphragmatic hernia without obstruction or gangrene | CPT/HCPCS: 43239 ==